=== PATIENT | female | born 1970 | race Caucasian/White ===

== ENCOUNTER 2016-10-25 05:23 | Inpatient (IN) ==
--- NOTE | 2016-10-25 05:34 | EKG Report ---
Test Performed on : 10/25/2016 05:25:54 AM Test Reason : CP Blood Pressure : / mmHG Vent. Rate : 095 BPM Atrial Rate : 095 BPM P-R Int : 110 ms QRS Dur : 128 ms QT Int : 380 ms P-R-T Axes : 055 048 028 degrees QTc Int : 477 ms Sinus rhythm. with short SC Right bundle branch block Abnormal ECG When compared with ECG of 24-AUG-2016 20:34, No significant change was found Unconfirmed Result
[2016-10-25 05:51] LABS: MANUAL DIFF NEEDED? NO
[2016-10-25 05:55] LABS: BASO% 0.3 % (0.0-0.8); EOS# 0.54 X1000 (0.0-0.7); EOS% 3.7 % (0.0-10.0); HEMATOCRIT 45.1 % (37.0-47.0); HEMOGLOBIN 15.7 g/dL (12.0-16.0); IMM GRAN# 0.08 X1000 (0.0-0.04); IMM GRAN% 0.6 % (0.0-0.5); LYMPH# 1.89 X1000 (1.2-3.4); MCH 28.9 PG (27-31); MCHC 34.8 g/dL (33-37); MCV 82.9 FL (81-99); MONO# 0.91 X1000 (0.11-0.59); MONO% 6.3 % (1.7-9.3); MPV 11.9 FL (7.4-10.4); NEUT% 76.1 % (42.2-75.2); PLT 217 X1000 (130-400); RBC 5.44 XMIL (4.2-5.4)
[2016-10-25] MEDS ORDERED: TORADOL IV ONE (06:00)
[2016-10-25] MEDS ORDERED: ZOFRAN IV ONE (06:00)
[2016-10-25] MEDS ORDERED: ROCEPHIN 1 GM/NS 50 ML IV ONE (06:01)
[2016-10-25] MEDS ORDERED: MORPHINE IV ONE (06:01)
--- NOTE | 2016-10-25 06:05 | PROVIDER DOCUMENTATION ---
HPI-Chest Pain - General Chief Complaint: Chest Pain Stated Complaint: chest wall pain Time Seen by Provider: 10/25/16 05:31 Source: patient, EMS Allergies/Adverse Reactions: Patient Allergies Allergy/AdvReac Type Severity Reaction Status Date / Time Penicillins Allergy HIVES Verified 11/26/16 22:44 Home Medications: Home Medication List Medication Instructions Recorded Confirmed Last Taken Type Paroxetine [Paxil] 1 tab PO DAILY 06/06/14 11/26/16 11/09/16 History Ciprofloxacin HCl [Cipro] 500 mg PO Q12HR #1 tablet 11/05/16 11/11/16 11/09/16 Rx Diazepam [Valium] 10 mg PO PRN PRN 11/10/16 11/26/16 Unknown History Glimepiride [Amaryl] 4 mg PO DAILY #30 tablet 11/10/16 11/26/16 Unknown Rx Metformin [Glucophage] 500 mg PO BID CC #60 tablet 11/10/16 11/26/16 Unknown Rx Azithromycin 500 mg PO DAILY #5 tablet 11/26/16 Unknown Rx Guaifenesin/Pseudoephedrne HCl 1 each PO BID #30 tab.er.12h 11/26/16 Unknown Rx [Mucinex D ER Tablet] - History of Present Illness-CP Nature of Presenting Problem: pt states that she has been sick for about 1 1/2 weeks with dry hacky painful cough then last night got chills and subjetive fevers and dev eloped severe right sided plueritic CP. She has been vomiting about once a day. She does smoke about 1 ppd Review of Systems - Adult - REVIEW OF SYSTEMS - ADULT Constitutional: reports: chills, fever, fatique Eyes: denies: discharge Ears, Nose, Mouth & Throat: reports: sinus problem. denies: ear pain, throat pain Cardiovascular: reports: chest pain. denies: edema, palpitations, syncope Respiratory: reports: cough, shortness of breath, wheezing Gastrointestinal: reports: nausea, vomiting. denies: abdominal pain, diarrhea Genitourinary: denies: dysuria, frequency, flank pain Musculoskeletal: denies: back pain, muscle aches Integumentary: denies: rash Neurological: denies: headache/migraines, numbness Psychiatric: reports: no symptoms reported Endocrine: reports: no symptoms reported Hematologic/Lymphatic: reports: no symptoms reported Allergic/Immunologic: reports: no symptoms reported All Other Systems: Reviewed and Negative Past History - Adult - PAST MEDICAL HISTORY-ADULT Review of Records: reports: Old Records Reviewed, Nursing Assessment Review, Medications Reviewed, Social history reviewed & non-contributory. Major Childhood Illnesses: reports: denies history Cardiovascular: reports: denies history Respiratory: reports: denies history Gastrointestinal: reports: denies history Obstetrical/Gynecological: reports: denies history Genitourinary: reports: denies history Musculoskeletal: reports: denies history Neurological: reports: Seizures/Epilepsy Endocrine/Immune: reports: Diabetes Other Conditions: reports: denies history - PRIOR SURGERIES/PROCEDURES Surgical/Procedure History: reports: hysterectomy, , orthopedic ( extremity), other - PRIOR HOSPITALIZATIONS Prior Hospitalizations: reports: none - IMMUNIZATION STATUS Childhood Immunizations: UTD Flu Vaccine: See Nurse Assessment - FAMILY HISTORY Family History: reviewed, not pertinent - SOCIAL HISTORY Smoking: greater than 1 pack/day Alcohol Use Frequency: occasionally Living Situation: family Physical Exam-General - PHYSICAL EXAM-ADULT Initial Vital Signs Reviewed: Yes - CONSTITUTIONAL General Appearance: appears well, alert, no apparent distress - EYES Eyes: pink conjunctivae. negative: scleral icterus - HEAD, EARS, NOSE, MOUTH & THROAT HENMT: normocephalic/atraumatic, pharynx normal - NECK Neck: non-tender, full range of motion, supple, normal inspection - RESPIRATORY Respiratory: lungs clear, normal breath sounds, no respiratory distress, no accessory muscle use. negative: chest non-tender (tender diffusely over anterior chest), no pleuratic chest pain - CARDIOVASCULAR Cardiovascular: regular rate, rhythm, no edema, no murmur - GASTROINTESTINAL (ABDOMEN) Abdominal Exam: normal bowel sounds, non tender, soft, no organomegaly, no pulsatile mass - MUSCULOSKELETAL Back Exam: normal inspection, no CVA tenderness, no vertebral tenderness Extremity: non-tender, normal gait, normal inspection, no pedal edema, no calf tenderness - SKIN Integumentary: normal color, normal turgor, warm/dry - NEUROLOGIC Neurologic: grossly normal, no motor/sensory deficits - PSYCHIATRIC Psych/Mental Status: normal mood/affect, normal thought content, normal thought process, oriented x 3 Progress - PLAN OF CARE/RESULTS Result Diagrams: 11/05/16 06:05 11/04/16 06:25 - EKG 1 Time of EKG reading by physician:: 05:25 EKG Interpretation (*Must complete 3 of following elements*): Abnormal Rate: 95 Rhythm: sinus Acworth: normal QRS: RBB AL Interval: normal ST Wave: normal Prior EKG Comparison: no prior EKG - XRAY 1 XRAY Study: Chest Impression: Abnormal (RLL infiltrate) - CHANGE OF SHIFT REPORT (ED Provider) Report Given and Care Transferred to:: Dr Hernandez Time of Transfer: 06:00 Items Pending: Labs Tentative Impression of Patient: pnuemonia Departure - Departure Time of Disposition Decision: 18:24 DIAGNOSIS: Chest pain Disposition: ADMITTED INPATIENT 09 Certified Medical Emergency: Emergent Condition: Stable - Critical Care Note This patient required my direct & personal management of CC.: Yes Attestation - Physician/ GIA Attestation The physician spent face to face time with patient:: Yes Advanced Practice Provider documentation review:: The physician spent face to face time with this patient and agrees with all MLP documentation, treatment, and medical decision making by the MLP. See provider notes for further information.
[2016-10-25 06:06] LABS: INR 0.89; PROTIME 9.3 Seconds (9.2-11.7); PTT 20.7 Seconds (22.0-36.0)
[2016-10-25 06:17] LABS: AGAP 16; ALBUMIN 3.6 g/dL (3.5-5.0); ALKALINE PHOSPHATASE 158 U/L (32-104); BUN 10 mg/dL (8-22); CALCIUM 9.3 mg/dL (8.8-10.2); CHLORIDE 91 mmol/L (98-107); CK PROFILE 31 U/L (24-173); COSMO 280; GOT 57 U/L (10-30); GPT 54 U/L (10-36); MAGNESIUM 1.8 mg/dL (1.5-2.7); POTASSIUM 4.4 mmol/L (3.5-5.1); SODIUM 130 mmol/L (136-145); TCO2 23 mmol/L (25-35); TOTAL BILIRUBIN 0.43 mg/dL (0.20-1.00)
[2016-10-25] MEDS ORDERED: NS 2,000 ML ONE (07:09)
[2016-10-25] MEDS ORDERED: NS 1,000 ML IV ONE (07:18)
--- NOTE | 2016-10-25 07:47 | Diag Imaging Result Document ---
PROCEDURE NAME: CHEST-2 VIEWS - 10/25/2016 FRONTAL AND LATERAL CHEST, TWO VIEWS: COMPARISON: 04/04/2016. FINDINGS: There is large round density in the right middle lobe with an air fluid level. The left lung is well expanded and clear. No pleural effusions. No cardiomegaly. The vessels are not distended. There is an azygous fissure. Mild scoliosis with degenerative spine changes. IMPRESSION: Interval development of a round opacity which is cavitary with an air fluid level in the right middle lobe. Findings likely postinfectious since it has developed since the prior exam. Treatment with short term follow up recommended.
[2016-10-25] MEDS ORDERED: HUMULIN R IV ONE (08:29)
[2016-10-25 09:32] LABS: HEMOGLOBIN A1C 10.6 % (4.8-6.0)
[2016-10-25 09:35] LABS: ACETONE SERUM SMALL (NEGATIVE)
--- NOTE | 2016-10-25 09:46 | HISTORY AND PHYSICAL ---
PRIMARY CARE PROVIDER: REMY Fleming. CHIEF COMPLAINT: Cough and chest wall pain. HISTORY OF PRESENT ILLNESS: Mrs. Huitron is a 46-year-old female with a history of nonepileptic seizures and type 2 diabetes, who presents with worsening shortness of breath and cough over the past 24 hours. She states she has been sick for the past 2 weeks with upper respiratory congestion, nasal congestion, and cough. She has had a child that has been sick with a cold. This morning when she got up for work she noted she was more short of breath and had worsening cough. She has been coughing up brown sputum. She has also been having chest wall pain with coughing. When she got to work she was a bit more short of breath and decided to come to the ER for evaluation. She has been having subjective fevers and chills. No exertional chest pain, no lower extremity edema, and no orthopnea. She does report posttussive emesis, but no overt nausea, vomiting, or abdominal pain. When she came to the ER she had labs and diagnostics done. A chest x-ray showed a cavitary lesion in the right lower lung and her labs showed leukocytosis, as well as elevated liver function tests. In the ER, she did have an episode of mild hypotension with a blood pressure in the high 80s but this has since been corrected with IV fluids. Currently, her vital signs are stable and she is afebrile. We are going to admit her for further treatment and evaluation. PAST MEDICAL HISTORY: 1. Type 2 diabetes. 2. Nonepileptic seizures. 3. Nicotine dependence. 4. Anxiety and depression. PAST SURGICAL HISTORY: Clubfoot repair as a child, hysterectomy, , shoulder surgery, hand surgery, and tubal ligation. SOCIAL HISTORY: Patient smokes a pack a day. She denies alcohol or drug use. She is single and works at [employer]. FAMILY HISTORY: Father at 71 with an [place]. Mother is still alive with a history of type 2 diabetes, heart disease, and hypertension. REVIEW OF SYSTEMS: A 14 point review of systems obtained and found to be negative with the exception of the HPI. ALLERGIES: Acetaminophen, hydrocodone, and penicillin. HOME MEDICATIONS: Glyburide 2.5 mg daily, Paxil 20 mg daily, Valium every 12 hours as needed for seizure. PHYSICAL EXAMINATION: VITAL SIGNS: Blood pressure is 121/76, heart rate 76, respiratory rate 20, O2 saturation 99% room air, temperature is 98.4 degrees. GENERAL: This is a chronically ill-appearing, 46-year-old female, lying in hospital bed, no acute distress. NEUROLOGIC: The patient is awake, alert, and oriented. She follows commands without focal deficits. HEENT: Head is atraumatic, normocephalic. Her pupils are equal, round, reactive to light. Oral mucosa is moist. Trachea is midline. No JVD. CHEST: Crackles over the right lung base. Otherwise clear to auscultation bilaterally. CV: Regular rate and rhythm. S1, S2 is noted. No murmurs, gallops, clicks, or rubs. GI: Soft, nondistended, nontender. Bowel sounds are positive. EXTREMITIES: Without edema, clubbing, or cyanosis. Pulses are palpable bilaterally. DIAGNOSTIC DATA: Chest x-ray shows cavitary lung lesion with air-fluid level in the right lower lung. WBC 14.51, hemoglobin 15.7, hematocrit 45.1, platelet count 217,000. INR 0.89. D-dimer 0.36. Sodium 130, potassium 4.4, chloride 91, CO2 23, anion gap 16, BUN 10, creatinine 0.7, glucose 453, calcium 9.3, magnesium 1.8. Bilirubin 0.43, AST 57, ALT 54, alkaline phosphatase 158. CK 31. Troponin negative. ProBNP 83. Albumin 3.6. ASSESSMENT AND PLAN: 1. Cavitary pneumonia: We will obtain blood cultures and sputum cultures. We will also obtain a QuantiFERON gold test. Will start the patient on meropenem to cover for anaerobic organisms. We are also going to check a CT of the chest with contrast for better evaluation. We will continue oxygen as needed, DuoNeb around the clock, and aggressive pulmonary toilet. 2. Hyperglycemia in a patient with type 2 diabetes: We are going to give the patient some IV insulin now and start her on sliding scale with high-dose insulin. It is likely the patient will need quite a bit more therapy than 2.5 mg of glyburide but we are going to check a hemoglobin A1c and make sure we educated the patient on diabetes. 3. Elevated liver function tests: Unclear as to the etiology. She denies any overt abdominal pain. She has no tenderness on exam. Will check alcohol level, acetaminophen level, hepatitis panel. We will check a CMP in the morning. 4. Mild elevated anion gap metabolic acidosis: We will check a lactic acid and serum acetone levels now and treat her underlying hyperglycemia and pneumonia. 5. Nonepileptic seizures: The patient denies any recent seizures. Will continue her Valium as needed. 6. Nicotine dependence: Patient has been highly advised to quit smoking. We will write a nicotine patch. Continue nicotine cessation education. 7. Deep vein thrombosis prophylaxis with Lovenox. Further recommendations to follow. Dictated by REMY Koch for Susan Casarez MD
[2016-10-25 09:48] LABS: ACETAMINOPHEN < 1.2 ug/mL (10-30)
[2016-10-25] MEDS: DUONEB (A & A) INH SCH ×3 (10:19→19:47)
[2016-10-25] MEDS: LOVENOX SUBQ SCH (10:32)
[2016-10-25] MEDS: NICODERM PATCH TD SCH (10:33)
[2016-10-25] MEDS: NS 1,000 ML IV SCH ×2 (10:33→21:08)
[2016-10-25 10:50] LABS: URINE CULTURE NEEDED? NO; URINE SOURCE CLEAN CATCH
[2016-10-25 10:55] LABS: BILIRUBIN URINE NEGATIVE (NEGATIVE); BLOOD URINE NEGATIVE (NEGATIVE); COLOR YELLOW; GLUCOSE URINE >1000 mg/dL (NEGATIVE); LEUKOCYTES URINE NEGATIVE (NEGATIVE); NITRITE URINE NEGATIVE (NEGATIVE); PH URINE 5.5; PROTEIN URINE NEGATIVE (NEGATIVE); SP GRAVITY URINE 1.039; TURBIDITY URINE CLEAR (CLEAR); URINE MICRO REVIEW NEEDED? YES; UROBILINOGEN URINE NORMAL (NORMAL)
[2016-10-25 10:56] LABS: UR EPITHELIAL CELLS <10 /HPF (<10); URINE BACTERIA NEGATIVE /HPF; URINE RBC <10 /HPF (<10); URINE WBC <10 /HPF (<10)
[2016-10-25] MEDS: MERREM 1 GM in NS 50 ML IV SCH ×2 (10:57→18:49)
[2016-10-25] MEDS: PAXIL PO SCH (10:57)
[2016-10-25 11:00] LABS: URINE CASTS NONE SEEN; URINE CRYSTALS NONE SEEN; URINE SMALL ROUND CELLS NONE SEEN
[2016-10-25] MEDS ORDERED: HUMALOG SUBQ SCH (11:00)
[2016-10-25 11:06] LABS: FREE T4 1.3 ng/dL (0.93-1.70)
[2016-10-25 11:08] LABS: TOTAL IRON 34 ug/dL (49-151)
[2016-10-25 11:09] LABS: IRON SATURATION 17 %; TIBC 205 ug/dL; UNBOUND IRON 171 ug/dL (112-346)
[2016-10-25 11:11] LABS: UR AMPHETAMINES QUAL NONE DETECTED (NONE DETECT); UR BARBITUATES QUAL NONE DETECTED (NONE DETECT); UR BENZODIAZEPIN QUAL NONE DETECTED (NONE DETECT); UR CANNABINOIDS QUAL NONE DETECTED (NONE DETECT); UR COCAINE QUAL NONE DETECTED (NONE DETECT); UR METHADONE QUAL NONE DETECTED (NONE DETECT); UR OPIATES QUAL PRESUMPTIVE POSITIVE (NONE DETECT); UR OXYCODONE QUAL NONE DETECTED (NONE DETECT); UR PCP QUAL NONE DETECTED (NONE DETECT)
--- NOTE | 2016-10-25 12:44 | Diag Imaging Result Document ---
PROCEDURE NAME: CT THORAX W/CONTRAST - 10/25/2016 CT THORAX WITH CONTRAST: TECHNIQUE: Performed with intravenous contrast. A dose reduction protocol was used. COMPARISON: No comparison CT thorax is available. FINDINGS: There is a 5.4 x 4.2 cm cavitary opacity at the right middle lobe. The cavity itself, which contains air and fluid, measures 2.6 x 2.4 cm. There is a 1 cm noncalcified nodular opacity at the superior right upper lobe. The remainder of the lungs show nonspecific mild interstitial marking prominence. There are tiny bilateral pleural effusions. There is no pneumothorax seen. There is a possible small (0.9 cm) lymph node at the superior right hilum. There is mild mediastinal adenopathy at the subcarinal region. There is an accessory azygos fissure noted consistent with normal variation. The visualized thyroid is mildly prominent, and there is a 0.7 cm low-density lesion in the left thyroid lobe. There is a small pericardial effusion. Included sections of upper abdomen show mildly heterogeneous enhancement of the visualized spleen. There are multiple calcified splenic granulomas noted from old granulomatous disease. IMPRESSION: 1. A 5.4 x 4.2 cm cavitary lesion at right middle lobe. Considerations include atypical infection and malignancy. 2. A 1 cm noncalcified nodule at superior right upper lobe. Possible small lymph node at the superior right hilum. Mild subcarinal mediastinal adenopathy. 3. Small pericardial effusion. Tiny bilateral pleural effusions. [facility]
[2016-10-25] MEDS ORDERED: HUMULIN R SUBQ SCH (12:45)
[2016-10-25] MEDS: DILAUDID IV PRN ×3 (13:33→21:08)
[2016-10-25] MEDS: HUMULIN R SUBQ SCH ×3 (13:37→21:10)
[2016-10-25] MEDS ORDERED: VANCOMYCIN IV PER PHARMACY MISC SCH (13:45)
[2016-10-25] MEDS ORDERED: VANCOMYCIN 1,850 MG in NS 500 ML IV ONE (15:00)
[2016-10-25] MEDS ORDERED: INSULIN PEN NEEDLES ONE (16:48)
--- NOTE | 2016-10-25 18:38 | CONSULTATION ---
DATE OF CONSULTATION: 10/25/2016 CONCLUSION: A 46-year-old female was admitted to the hospital with cavitary lesion in the right middle lobe. She has an air-fluid level in the lesion. This may be due to a lung abscess although the patient does not have a foul odor to her breath and her teeth are in good repair. Patient denied to me smoking but the lesion could also represent a malignancy. The patient has a history of penicillin allergy as a child manifested by hives. She is on meropenem now and tolerating it well. RECOMMENDATIONS: I agree with treating the patient with vancomycin and meropenem pending blood cultures. A sputum culture already has been ordered but not collected. DISCUSSION: The patient in the past week had some upper respiratory congestion. Today she had the sudden onset of severe right pleuritic chest pain. She is not coughing much and has not brought up any sputum. She has not had any fever or chills. She does not have any appetite today. Laboratory studies thus far show a CBC with a white count of 4510, hemoglobin 15.7 and platelet count 217,000. Glucose was 453. AST was 57. Alkaline phosphatase was 158. Swab for influenza was negative. Blood cultures are pending. Quantiferon is pending. PAST MEDICAL HISTORY/REVIEW OF SYSTEMS: Eyes and ears: She denies difficulty hearing or seeing. Neck: No stiffness. Respiratory: She is having pleuritic right-sided chest pain. She has been coughing and she has not brought up any sputum. Gastrointestinal: The patient does not feel like eating today. She has not been having vomiting or diarrhea. Genitourinary : No dysuria or flank pain. Neurologic: No motor or sensory loss. No seizures. Endocrine: Patient has diabetes mellitus but not thyroid disease. Neurologic: No seizures. No motor or sensory loss. Bones, joints, muscles: No joint pain or myalgias. Integument: No rash. The remainder of the patient's review of systems was completed and was negative. PHP PROGRAMMER HISTORY: She is a 3, para 3, AB 0. She delivered one of her children by C- section. She had a tubal ligation and hysterectomy. PREVIOUS HOSPITALIZATIONS AND OPERATIONS: She had a , labor and delivery, tubal ligation, hysterectomy, surgery on her feet, surgery on her hand and surgery on her shoulder. MEDICAL DISEASES: Positive for diabetes mellitus. INFECTIOUS DISEASE HISTORY: Positive for UTI. Negative for pneumonia. FAMILY HISTORY: Positive for diabetes mellitus, hypertension, myocardial infarction, and stroke. SOCIAL HISTORY: The patient [place] . [place] She denied smoking cigarettes, drinking alcoholic beverages or abusing drugs. She works at [email or web address]. Where she lives there is a dog that the patient is often exposed to. ALLERGIES: The patient states she is allergic to penicillin. As a child she had hives. She is tolerating meropenem well. MEDICATIONS: At home include glyburide, Valium and Paxil. PHYSICAL EXAMINATION: Vital Signs: Temperature is 99.6 degrees, pulse 91, respirations 18, blood pressure 91/62. The patient weighs 136 pounds. General: This is an ill- appearing middle-aged female. She seems to be having right-sided pleuritic chest pain. Head/eyes/ ears/nose/throat: She can hear my spoken words and see near objects. No drainage noted from the nose or ears. Neck: No meningismus. Thorax: No increased AP diameter. Lungs: Lungs are clear on the left side. On the right side there were a few rhonchi heard. No rales were heard. Abdomen: Soft and nontender. Neurologic: Patient is awake. She can move her extremities. There is no tremor. Her sensation was intact to touch. Her memory regarding her medical history seemed to be intact as well. Integument: No rash noted. Thank you for the consultation. [facility]TD[facility]
[2016-10-25] MEDS: TYLENOL PO PRN (21:08)
[2016-10-25] MEDS: ZOFRAN IV PRN (21:09)
[2016-10-25] MEDS: LEVEMIR SUBQ SCH (21:09)
[2016-10-26] MEDS: DILAUDID IV PRN ×5 (00:52→16:26)
[2016-10-26] MEDS: ZOFRAN IV PRN ×3 (02:24→12:14)
[2016-10-26] MEDS: HUMULIN R SUBQ SCH ×6 (02:25→20:35)
[2016-10-26] MEDS: MERREM 1 GM in NS 50 ML IV SCH ×3 (02:25→17:56)
[2016-10-26] MEDS: VALIUM PO PRN ×2 (04:09→20:19)
[2016-10-26] MEDS: NS 1,000 ML IV SCH ×2 (04:40→12:23)
[2016-10-26 06:16] LABS: MANUAL DIFF NEEDED? NO
[2016-10-26 06:19] LABS: BASO% 0.1 % (0.0-0.8); EOS# 0.01 X1000 (0.0-0.7); EOS% 0.1 % (0.0-10.0); HEMATOCRIT 38.4 % (37.0-47.0); HEMOGLOBIN 13.1 g/dL (12.0-16.0); IMM GRAN# 0.08 X1000 (0.0-0.04); IMM GRAN% 0.4 % (0.0-0.5); LYMPH% 8.8 % (20.5-51.1); MCH 28.9 PG (27-31); MCHC 34.1 g/dL (33-37); MCV 84.6 FL (81-99); MONO# 1.29 X1000 (0.11-0.59); MONO% 6.7 % (1.7-9.3); MPV 10.7 FL (7.4-10.4); NEUT% 83.9 % (42.2-75.2); PLT 224 X1000 (130-400); RBC 4.54 XMIL (4.2-5.4)
[2016-10-26] MEDS: SODIUM CHLORIDE 0.9% INJ SCH (06:31)
[2016-10-26] MEDS: PROTONIX IV SCH (06:31)
[2016-10-26 06:34] LABS: AGAP 8; ALBUMIN 2.8 g/dL (3.5-5.0); ALKALINE PHOSPHATASE 114 U/L (32-104); BUN 10 mg/dL (8-22); CALCIUM 9.2 mg/dL (8.8-10.2); CHLORIDE 101 mmol/L (98-107); COSMO 275; GOT 16 U/L (10-30); GPT 37 U/L (10-36); POTASSIUM 5.1 mmol/L (3.5-5.1); SODIUM 135 mmol/L (136-145); TCO2 26 mmol/L (25-35); TOTAL BILIRUBIN 0.31 mg/dL (0.20-1.00); TOTAL PROTEIN 6.6 g/dL (6.3-8.3)
[2016-10-26] MEDS ORDERED: PRILOSEC PO SCH (07:00)
--- NOTE | 2016-10-26 07:03 | EKG Report ---
Test Performed on : 10/26/2016 06:28:32 AM Test Reason : CP Blood Pressure : / mmHG Vent. Rate : 083 BPM Atrial Rate : 083 BPM P-R Int : 118 ms QRS Dur : 136 ms QT Int : 406 ms P-R-T Axes : 074 044 028 degrees QTc Int : 477 ms Normal sinus rhythm. Right bundle branch block Abnormal ECG When compared with ECG of 25-OCT-2016 05:25, No significant change was found Confirmed by Michael MCMULLEN, Collin Gonzalez ([id number]) on 10/26/2016 4:30:57 PM
[2016-10-26] MEDS: DUONEB (A & A) INH SCH ×3 (08:51→23:02)
[2016-10-26] MEDS: PAXIL PO SCH (09:08)
[2016-10-26] MEDS: NICODERM PATCH TD SCH (09:09)
[2016-10-26] MEDS: LEVEMIR SUBQ SCH ×2 (09:20→20:35)
[2016-10-26] MEDS: LOVENOX SUBQ SCH (09:26)
--- NOTE | 2016-10-26 10:34 | PROGRESS NOTE ---
DATE: 10/26/2016 PRESENT ILLNESS: The patient has a cavitary lesion in the right middle lobe. It has an air-fluid level in it. MEDICATIONS: The patient is on a combination of vancomycin and meropenem. PHYSICAL EXAMINATION: Vital Signs: Temperature is 97.5 degrees, pulse 83, respirations 16, blood pressure 107/60. General: This is an ill-appearing, middle-aged female. She does not appear to be having as much pain as she did yesterday, and she is more alert and not lethargic like she was yesterday. Lungs: Clear to auscultation. Cardiovascular: Heart rate is regular. Abdomen: Soft and nontender. LABS AND X-RAYS: The patient's CBC shows a white count of 19,220, hemoglobin 13.1, and platelet count of 224,000. The patient's creatinine for today is 0.5 with a GFR of greater than 60. The patient's glucose has come down from 453 to 211. Blood cultures are pending. Swab for influenza is negative. Sputum culture is not growing at this time. There is no new x-ray for today. ASSESSMENT AND PLAN: Patient has a cavitary lung lesion. My plan would be to continue treating her with a combination of vancomycin and meropenem pending other tests that have been ordered earlier for the patient including a QuantiFERON. I could not actually find a comorbidity. She does not smoke cigarettes. She does not drink alcoholic beverages. She does not abuse drugs. ASSESSMENT AND PLAN: To continue with the broad-spectrum antibiotic coverage that the patient is on already. COMORBIDITIES: The patient's comorbidities include mainly diabetes mellitus. She denies cigarette smoking.
[2016-10-26 10:43] LABS: HEPATITIS PROFILE ACUTE SEE COMMENTS (())
[2016-10-26] MEDS: VANCOMYCIN 1,500 MG in NS 250 ML IV SCH (12:12)
[2016-10-26] MEDS: TYLENOL PO PRN (20:19)
--- NOTE | 2016-10-26 20:35 | PROGRESS NOTE ---
DATE: 10/26/2016 SUBJECTIVE: The patient complains of pain in her chest when she takes a deep breath. She also complains of cough and shortness of breath. OBJECTIVE: Vital Signs: Temperature 98.2 degrees, blood pressure 112/63, heart rate 97, respirations 18, O2 saturations 90% on 2 L nasal cannula. General: This is a middle-aged female, lying in bed, in no acute distress. Head: Normocephalic, atraumatic. Heart: S1, S2 normal. Regular rate and rhythm. Lungs: Coarse breath sounds bilaterally. Abdomen: Positive bowel sounds. Soft, nontender, nondistended. Extremities: No edema. No cyanosis. No calf tenderness. Neurologic: The patient is alert and oriented x3. LABS: White blood cell count 19, hemoglobin 13, hematocrit 38, platelets 224,000, sodium 135, potassium 5.1, chloride 101, CO2 26, BUN 10, creatinine 0.5, glucose 211, calcium 9.2. ASSESSMENT AND PLAN: 1. Cavitating lung lesion. Continue with broad-spectrum antibiotics as directed by Dr. Mcmanus. We will continue with incentive spirometry, bronchodilator therapy and supplemental oxygen. 2. Uncontrolled diabetes mellitus type 2. We will continue Levemir plus sliding scale insulin. 3. Leukocytosis. Continue with current antibiotic therapy. 4. Hyponatremia. Improved. 5. Deep vein thrombosis prophylaxis. Continue on Lovenox. 6. Gastrointestinal prophylaxis. Continue on IV Protonix.
[2016-10-27] MEDS: DILAUDID IV PRN ×6 (00:36→22:26)
[2016-10-27] MEDS: HUMULIN R SUBQ SCH ×5 (01:20→17:01)
[2016-10-27] MEDS: MERREM 1 GM in NS 50 ML IV SCH ×4 (02:06→17:28)
[2016-10-27] MEDS: ZOFRAN IV PRN ×5 (02:06→22:26)
[2016-10-27] MEDS: DUONEB (A & A) INH SCH ×5 (02:42→20:55)
[2016-10-27] MEDS: VANCOMYCIN 1,500 MG in NS 250 ML IV SCH (05:07)
[2016-10-27] MEDS: NS 1,000 ML IV SCH ×3 (05:10→15:45)
[2016-10-27] MEDS: PROTONIX IV SCH (06:28)
[2016-10-27] MEDS: SODIUM CHLORIDE 0.9% INJ SCH (06:28)
[2016-10-27 06:54] LABS: BASO% 0.1 % (0.0-0.8); EOS# 0.02 X1000 (0.0-0.7); EOS% 0.1 % (0.0-10.0); HEMATOCRIT 37.6 % (37.0-47.0); HEMOGLOBIN 12.4 g/dL (12.0-16.0); IMM GRAN# 0.08 X1000 (0.0-0.04); IMM GRAN% 0.5 % (0.0-0.5); LYMPH# 1.27 X1000 (1.2-3.4); LYMPH% 7.2 % (20.5-51.1); MANUAL DIFF NEEDED? YES; MCH 28.3 PG (27-31); MCV 85.8 FL (81-99); MONO# 1.11 X1000 (0.11-0.59); MONO% 6.3 % (1.7-9.3); MPV 11.2 FL (7.4-10.4); NEUT% 85.8 % (42.2-75.2); PLT 237 X1000 (130-400); RBC 4.38 XMIL (4.2-5.4)
[2016-10-27 07:03] LABS: AGAP 12; ALBUMIN 2.6 g/dL (3.5-5.0); ALKALINE PHOSPHATASE 118 U/L (32-104); BUN 12 mg/dL (8-22); CALCIUM 9.6 mg/dL (8.8-10.2); CHLORIDE 100 mmol/L (98-107); COSMO 274; GOT 14 U/L (10-30); GPT 27 U/L (10-36); POTASSIUM 3.9 mmol/L (3.5-5.1); SODIUM 136 mmol/L (136-145); TCO2 24 mmol/L (25-35); TOTAL BILIRUBIN 0.19 mg/dL (0.20-1.00); TOTAL PROTEIN 6.2 g/dL (6.3-8.3)
[2016-10-27 07:18] LABS: BANDS 10 % (0-1); LYMPHS 8 % (21-51); MONO 4 % (1-9)
[2016-10-27] MEDS: LOVENOX SUBQ SCH ×2 (08:35→10:49)
[2016-10-27] MEDS: PAXIL PO SCH (08:35)
[2016-10-27] MEDS: LEVEMIR SUBQ SCH (08:36)
[2016-10-27] MEDS: NICODERM PATCH TD SCH (08:37)
--- NOTE | 2016-10-27 14:11 | PROGRESS NOTE ---
DATE: 10/27/2016 SUBJECTIVE: The patient complains of nausea whenever she tries to eat or drink anything. She states that her shortness of breath is getting better. OBJECTIVE: Vital Signs: Temperature 98.4 degrees, blood pressure 121/72, heart rate 16. O2 saturations 93% on nasal cannula. General: This is a middle-aged female, lying in bed, in no acute distress Head normocephalic, atraumatic. Heart: S1, S2. Normal regular rate and rhythm. Lungs clear to auscultation bilaterally. No crackles. No rales. Abdomen: Positive bowel sounds. Soft, nontender, nondistended. Extremities: No edema. No cyanosis. No calf tenderness. Neurologic: The patient is alert and oriented x3. LABORATORY: White blood cell count 17, hemoglobin 12, hematocrit 37, platelets 237,000. Sodium 136, potassium 3.9, chloride 100, CO2 of 24. BUN 12, creatinine 0.4, glucose 134. Magnesium 1.8, calcium 9.6. ASSESSMENT AND PLAN: 1. Caveating lung lesion. So far, the blood cultures are negative and the sputum culture shows no growth. Continue on the current IV antibiotic regimen. 2. Nausea with vomiting. The patient does have poorly controlled diabetes mellitus. This may represent diabetic gastroparesis. We will schedule the patient for gastric emptying study on Saturday. We will continue on antiemetics for now. 3. Uncontrolled insulin-dependent diabetes mellitus. Continue on Levemir twice a day plus sliding scale insulin. 4. Depression. Continue on Paxil. 5. Tobacco dependence. Continue on the NicoDerm patch. 6. Leukocytosis. This appears to be improving slowly. Continue on IV antibiotic therapy. 7. Gastroesophageal reflux disease. Continue on IV Protonix. 8. Deep vein thrombosis prophylaxis. Continue on Lovenox.
[2016-10-27] MEDS ORDERED: INSULIN PEN NEEDLES ONE (15:47)
[2016-10-28] MEDS: HUMULIN R SUBQ SCH ×7 (00:04→20:30)
[2016-10-28] MEDS: LEVEMIR SUBQ SCH ×3 (00:04→20:25)
[2016-10-28] MEDS: VANCOMYCIN 1,500 MG in NS 250 ML IV SCH ×2 (00:31→12:33)
[2016-10-28] MEDS: VALIUM PO PRN ×2 (01:18→20:25)
[2016-10-28] MEDS: TYLENOL PO PRN ×2 (01:18→20:25)
[2016-10-28] MEDS: MERREM 1 GM in NS 50 ML IV SCH ×4 (02:17→17:51)
[2016-10-28] MEDS: DUONEB (A & A) INH SCH ×4 (02:54→19:40)
[2016-10-28] MEDS: DUONEB (A & A) INH PRN (04:30)
[2016-10-28 05:46] LABS: MANUAL DIFF NEEDED? NO
[2016-10-28 05:52] LABS: BASO% 0.1 % (0.0-0.8); EOS# 0.03 X1000 (0.0-0.7); EOS% 0.2 % (0.0-10.0); HEMATOCRIT 36.6 % (37.0-47.0); HEMOGLOBIN 12.2 g/dL (12.0-16.0); IMM GRAN# 0.07 X1000 (0.0-0.04); IMM GRAN% 0.5 % (0.0-0.5); LYMPH# 1.48 X1000 (1.2-3.4); LYMPH% 9.9 % (20.5-51.1); MCH 28.9 PG (27-31); MCHC 33.3 g/dL (33-37); MCV 86.7 FL (81-99); MONO# 1.02 X1000 (0.11-0.59); MONO% 6.8 % (1.7-9.3); MPV 10.7 FL (7.4-10.4); NEUT% 82.5 % (42.2-75.2); PLT 262 X1000 (130-400); RBC 4.22 XMIL (4.2-5.4)
[2016-10-28] MEDS: PROTONIX IV SCH ×3 (06:18→19:51)
[2016-10-28] MEDS: NS 1,000 ML IV SCH ×3 (06:18→19:51)
[2016-10-28] MEDS: SODIUM CHLORIDE 0.9% INJ SCH ×2 (06:18→16:45)
[2016-10-28 06:50] LABS: AGAP 11; BUN 12 mg/dL (8-22); CALCIUM 8.8 mg/dL (8.8-10.2); CHLORIDE 103 mmol/L (98-107); COSMO 281; POTASSIUM 4.1 mmol/L (3.5-5.1); SODIUM 140 mmol/L (136-145); TCO2 26 mmol/L (25-35)
[2016-10-28] MEDS: ZOFRAN IV PRN ×4 (08:46→23:32)
[2016-10-28] MEDS: DILAUDID IV PRN ×3 (08:46→23:32)
[2016-10-28] MEDS: NICODERM PATCH TD SCH (08:47)
[2016-10-28] MEDS: PAXIL PO SCH (08:48)
[2016-10-28] MEDS: LOVENOX SUBQ SCH ×2 (08:51→12:29)
[2016-10-28] MEDS ORDERED: SODIUM CHLORIDE 0.9% INJ SCH (13:00)
--- NOTE | 2016-10-28 15:44 | PROGRESS NOTE ---
DATE: 10/28/2016 SUBJECTIVE: The patient complains of in inability to keep solids or liquids down. She states that every time she tries to the eat she ends up vomiting. OBJECTIVE: Vital Signs: Temperature 98.2 degrees, blood pressure 108/66, heart rate 95, respirations 18, O2 saturations 95% on 4 L nasal cannula. General: This is a middle-aged female lying in bed in no acute distress. Head: Normocephalic. Atraumatic. Heart: S1, S2. Normal. Regular rate and rhythm. Lungs: Clear to auscultation bilaterally. No wheezes, no rales. No rhonchi. Abdomen: Positive bowel sounds. Soft, nontender, nondistended. Extremities: No edema. No cyanosis. No calf tenderness. Neurologic: The patient is alert and oriented x3. No focal neurologic deficits noted. LABS: White blood cell count 14, hemoglobin 12, hematocrit 36, platelets 262,000. Sodium 140, potassium 4.1, chloride 103, CO2 26, BUN 12, creatinine 0.5, glucose 130, calcium 8.8, magnesium 1.7. ASSESSMENT AND PLAN: 1. Cavitary lung lesion with pneumonia. Continue on IV antibiotic therapy plus bronchodilator therapy. 2. Nausea with vomiting. The patient is a poorly controlled diabetic. Gastric emptying study has been ordered to be done tomorrow. Will also consult GI for further recommendations. 3. Insulin-dependent diabetes mellitus. Will adjust the patient's Levemir dosage. 4. Situational depression. Continue on Paxil. 5. Tobacco dependence. Continue on the NicoDerm patch. 6. Leukocytosis. Improved. Continue on IV antibiotic therapy. 7. Deep vein thrombosis prophylaxis. Continue on Lovenox.
--- NOTE | 2016-10-28 23:21 | CONSULTATION ---
DATE OF CONSULTATION: 10/28/2016 REFERRING PHYSICIAN: Dr. Susan Casarez M.D. PRIMARY CARE PHYSICIAN: REMY Fleming. REASON FOR CONSULTATION: 1. Nausea with vomiting. 2. Elevated liver function tests. HISTORY OF PRESENT ILLNESS: The patient is a 46-year-old white female, who has type 2 diabetes and nonepileptic seizures, who was admitted with shortness of breath and a cough , on 10/25/2016. She was found to have a right pneumonia with a cavitary lesion suspicious for infection versus malignancy. She is currently receiving IV antibiotics and fluids. Her labs in the emergency room were remarkable for hyperglycemia, and elevated liver function tests. Throughout this hospital course, her liver function tests are improving. Also on CT scan, she was noted to have fatty liver. Overall, the patient states that her nausea and vomiting occurs after she coughs up copious amounts of phlegm. She denies vomiting in between meals. However, she does have a significant postprandial nausea, which precedes her recent diagnosis of pneumonia. She describes chronic right upper quadrant pain and constipation. She has a history of gastroesophageal reflux disease. We are asked to participate in her care. PAST MEDICAL HISTORY: 1. Diabetes 2. 2. Nonepileptic seizures. 3. Nicotine dependence. 4. Anxiety and depression. 5. GERD. PAST SURGICAL HISTORY: 1. Clubfoot repair as a child. 2. Hysterectomy. 3. . 4. Shoulder surgery. 5. Hand surgery. 6. Tubal ligation. SOCIAL HISTORY: Remarkable in that the patient smokes 1 pack of cigarettes per day. She denies alcohol or recreational drug use. She is single and works at [email or web address]. FAMILY HISTORY: Positive for coronary artery disease, hypertension, diabetes. There is no history of malignancy. REVIEW OF SYSTEMS: Remarkable for dyspnea, productive cough, right upper quadrant pain, and nausea, that is worse after meals, and posttussive vomiting. PHYSICAL EXAMINATION: General: She is ill-appearing, but in no acute distress. vital signs: Her blood pressure is 108/66, pulse of 95, respirations 18, temperature of 98.2. HEENT: Negative for jaundice. Her oropharyngeal mucosal membranes are dry. Pulmonary: Inspiratory and expiratory wheezes with scattered rhonchi, and coarse breath sounds with E:A changes in the right lung, consistent with her diagnosis of a cavitary lesion, and right pneumonia. Cardiovascular: Reveals regular rate and rhythm with no murmurs, gallops, or rubs. Abdominal: Reveals normoactive bowel sounds. The abdomen is soft with mild right upper quadrant tenderness, that is inconsistent when the patient is distracted. It is nondistended, although she has mild central adiposity. Extremities: Bilaterally are negative for cyanosis, clubbing, or edema. Neurologic: The patient is alert and oriented x3. OBJECTIVE DATA: Reveals a hemoglobin of 12.2, with hematocrit of 36.6, and a white count of 14.96. She has 262,000 platelets. Sodium is 140, potassium 4.1, chloride 103, CO2 of 26, BUN 12, creatinine 0.5, with a glucose of 130. Her calcium is 8.8, and magnesium 1.7. IMPRESSION: 1. Right upper lobe cavitary pneumonia. 2. Nausea with vomiting. 3. Right upper quadrant pain. 4. History of GERD. 5. Constipation, that is worse since she has been admitted. 6. Elevated liver function tests. RECOMMENDATION: 1. The patient's liver function tests have improved considerably throughout the hospital course. I suspect it may be related to her pneumonia with a possible viral syndrome. Given that her liver function tests are improving spontaneously, I recommend monitoring. 2. To evaluate the nausea with vomiting, it is reasonable to check a right upper quadrant ultrasound and HIDA scan. I will order these for tomorrow. 3. Because of her diabetes, I will also order a gastric emptying study to be performed in a couple of days, allowing time for her nausea and vomiting to improve, while she is receiving treatment for her pneumonia. 4. Continue IV Protonix 40 mg q.12 hours. 5. Consider a modified barium swallow before discharge to assess for aspiration. 6. Additional recommendations to follow based on her clinical course and the results of her evaluation. [facility]
[2016-10-29] MEDS: NS 1,000 ML IV SCH ×3 (00:39→23:20)
[2016-10-29] MEDS: VANCOMYCIN 1,500 MG in NS 250 ML IV SCH ×3 (00:39→23:27)
[2016-10-29] MEDS: D50W SYRINGE ONE ×2 (00:46→05:51)
[2016-10-29] MEDS: HUMULIN R SUBQ SCH ×6 (00:55→23:27)
[2016-10-29] MEDS: MERREM 1 GM in NS 50 ML IV SCH ×3 (02:38→19:45)
[2016-10-29] MEDS: DUONEB (A & A) INH SCH ×4 (03:12→20:01)
[2016-10-29] MEDS: ZOFRAN IV PRN (05:50)
[2016-10-29] MEDS: DILAUDID IV PRN ×4 (05:50→19:45)
[2016-10-29] MEDS: SODIUM CHLORIDE 0.9% INJ SCH ×2 (05:51→19:52)
[2016-10-29] MEDS: PROTONIX IV SCH ×3 (05:51→19:45)
[2016-10-29 06:33] LABS: MANUAL DIFF NEEDED? NO
[2016-10-29 06:40] LABS: BASO% 0.2 % (0.0-0.8); EOS# 0.08 X1000 (0.0-0.7); EOS% 0.8 % (0.0-10.0); HEMATOCRIT 36.7 % (37.0-47.0); HEMOGLOBIN 11.9 g/dL (12.0-16.0); IMM GRAN# 0.07 X1000 (0.0-0.04); IMM GRAN% 0.7 % (0.0-0.5); LYMPH# 1.42 X1000 (1.2-3.4); LYMPH% 13.7 % (20.5-51.1); MCH 28.6 PG (27-31); MCHC 32.4 g/dL (33-37); MCV 88.2 FL (81-99); MONO# 0.91 X1000 (0.11-0.59); MONO% 8.8 % (1.7-9.3); MPV 10.3 FL (7.4-10.4); NEUT% 75.8 % (42.2-75.2); PLT 291 X1000 (130-400); RBC 4.16 XMIL (4.2-5.4)
[2016-10-29 07:06] LABS: AGAP 9; BUN 10 mg/dL (8-22); CALCIUM 8.7 mg/dL (8.8-10.2); CHLORIDE 103 mmol/L (98-107); COSMO 286; SODIUM 142 mmol/L (136-145); TCO2 30 mmol/L (25-35)
[2016-10-29] MEDS: LEVEMIR SUBQ SCH ×2 (10:37→23:26)
[2016-10-29] MEDS: LOVENOX SUBQ SCH (10:44)
[2016-10-29] MEDS: NICODERM PATCH TD SCH (10:45)
--- NOTE | 2016-10-29 10:49 | Diag Imaging Result Document ---
PROCEDURE NAME: US GB < RUQ (LIMITED) - 10/29/2016 RIGHT UPPER QUADRANT ABDOMINAL ULTRASOUND: COMPARISON: None available. FINDINGS: There is questionable non shadowing echogenic sludge layering in the gallbladder lumen versus reverberation artifact. No shadowing stones are identified. There is no evidence of gallbladder wall thickening or pericholecystic fluid. Sonographic Moura's sign was reported to be negative. The common bile duct is normal in diameter. The liver is perhaps mildly prominent measuring up to 18.8 cm in length. Portal venous flow is hepatopetal. No discrete hepatic mass is identified. The visualized pancreas, aorta, IVC, and right kidney are unremarkable. IMPRESSION: 1. Questionable small amount of nonshadowing sludge layering in the gallbladder lumen versus reverberation artifact. No stones are identified and there is no gallbladder wall thickening or surrounding fluid to indicate cholecystitis by ultrasound. Please correlate clinically. 2. Mildly prominent liver. 3. Not mentioned above, there is a trace right pleural effusion noted incidentally.
--- NOTE | 2016-10-29 11:17 | Diag Imaging Result Document ---
PROCEDURE NAME: GASTRIC EMPTYING - 10/29/2016 NUCLEAR MEDICINE GASTRIC EMPTYING STUDY: COMPARISON: None available. FINDINGS: 593 mCi of technetium-99 sulfur colloid was administered orally with oatmeal. There was normal-appearing activity in the gastric lumen initially. The time to 1/2 emptying was 50.3 minutes. At 120 minutes, there was near 100% emptying. IMPRESSION: Normal gastric emptying study.
[2016-10-29] MEDS: PAXIL PO SCH (12:09)
--- NOTE | 2016-10-29 14:55 | PROGRESS NOTE ---
DATE: 10/29/2016 PRESENT ILLNESS: The patient has a right middle lobe cavitary lesion with an air-fluid level in it. MEDICATIONS: The patient is receiving vancomycin, meropenem. PHYSICAL EXAMINATION: Vital Signs: Temperature is 98.4 degrees, pulse is 92, respirations 18, blood pressure 124/68. General: This is somewhat of an ill-appearing middle-aged female who is in no acute distress. Lungs: There were few rhonchi heard on the right side. The left side was clear. Cardiovascular: Heart rate is regular. Abdomen: Soft and nontender. Neurologic: Patient is alert. She can move her extremities. LAB AND X-RAY: The ultrasound showed sludge in the gallbladder. Gastric emptying study was normal. The patient's CBC today showed a white count of 10,360, hemoglobin 11.9, and platelet count 291,000. Creatinine is 0.5. GFR is greater than 60. The patient's sputum grew normal dontae. ASSESSMENT AND PLAN: Patient has a cavitary lung lesion. I plan to continue her current antibiotics. I have ordered a chest x-ray for tomorrow. The patient's QuantiFERON test is still pending. COMORBIDITIES: The main comorbidity is the fact that the patient is diabetic. She denied smoking cigarettes.
[2016-10-29] MEDS: VALIUM PO PRN (17:30)
[2016-10-29] MEDS: TYLENOL PO PRN (17:30)
--- NOTE | 2016-10-29 18:10 | PROGRESS NOTE ---
DATE: 10/29/2016 SUBJECTIVE: The patient states that she is feeling much better today. Her gastric emptying study was normal. It appears that the nausea with vomiting is related to the pneumonia. Therefore, I recommend continued supportive care. Her labs are reviewed and they are stable. She remains afebrile with a stable blood pressure.
--- NOTE | 2016-10-29 19:30 | PROGRESS NOTE ---
DATE: 10/29/2016 SUBJECTIVE: Patient reports still feeling nauseated. Sometimes she gets short of breath when she tries to walk some. Denies any fever or chills. OBJECTIVE: Vital Signs: Temperature 98.5 degrees, heart rate 87, respiratory rate 20, blood pressure 107/69, O2 saturation 96% on 4 L nasal cannula. General: This is a 46 -year-old female lying in bed, in no acute distress. HEENT: Head is normocephalic and atraumatic. Anicteric sclerae and pale conjunctivae. Mucous membranes moist. Neck: Supple. No JVD noted. No carotid bruit. No lymphadenopathy. No thyromegaly. Cardiovascular: S1, S2 heard. No murmurs, gallops or rubs. Regular rate and rhythm. Respiratory: Clear bilaterally to auscultation with some wheezing in both bases. Patient is not using any accessory muscles or having work of breathing. Abdomen: Soft, nontender to palpation. Bowel sounds present. No organomegaly. Extremities: No clubbing, cyanosis, or edema. Peripheral pulses present in both legs. Neurological: Patient alert oriented x3. Able to move 4 extremities. Cranial nerves 2-12 grossly normal. LABORATORY DATA: White cell count 10.36, hemoglobin 11.9, hematocrit 36.7, platelets 291,000. BMP unremarkable. ASSESSMENT AND PLAN: 1. Cavitary lung lesion with pneumonia. Dr. Mcmanus is following this patient. Patient is on meropenem and vancomycin. We will continue with same management. Also, patient is getting albuterol and Atrovent 4 times per day. 2. Nausea, vomiting. We have consulted Gastroenterology for this condition and there was a suspicion for diabetic gastroparesis, but gastric emptying studies returned normal. Also, for elevated liver function tests, an abdominal ultrasound HIDA scan was ordered. The abdominal ultrasound basically showed questionable small amount of sludge in gallbladder lumen. Right pleural effusion noted. I think at this point, if she is not nauseated and the liver function tests now are normal, I think she can be discharged from Gastroenterology standpoint. 3. Situational depression. Patient is on Paxil. 4. Tobacco dependence. Patient is on NicoDerm patch. 5. Leukocytosis secondary to pneumonia. We will continue with the same management. [facility]
[2016-10-30] MEDS: DILAUDID IV PRN ×5 (02:12→22:34)
[2016-10-30] MEDS: DUONEB (A & A) INH SCH ×4 (02:17→21:23)
[2016-10-30] MEDS: VALIUM PO PRN ×2 (02:55→15:58)
[2016-10-30] MEDS: HUMULIN R SUBQ SCH ×5 (03:19→17:17)
[2016-10-30] MEDS: MERREM 1 GM in NS 50 ML IV SCH ×3 (04:50→22:34)
[2016-10-30 07:22] LABS: AGAP 10; BUN 6 mg/dL (8-22); CALCIUM 8.6 mg/dL (8.8-10.2); CHLORIDE 101 mmol/L (98-107); COSMO 282; POTASSIUM 3.6 mmol/L (3.5-5.1); SODIUM 139 mmol/L (136-145); TCO2 28 mmol/L (25-35)
[2016-10-30] MEDS: PROTONIX IV SCH ×2 (07:50→22:34)
[2016-10-30] MEDS: ZOFRAN IV PRN ×3 (08:48→22:34)
[2016-10-30] MEDS: LEVEMIR SUBQ SCH (08:48)
[2016-10-30] MEDS: LOVENOX SUBQ SCH ×2 (08:49→10:51)
[2016-10-30] MEDS: NICODERM PATCH TD SCH (08:49)
[2016-10-30] MEDS: PAXIL PO SCH (08:49)
--- NOTE | 2016-10-30 09:29 | PROGRESS NOTE ---
DATE: 10/30/2016 PRESENT ILLNESS: The patient has a right middle lobe cavitary lesion with an air-fluid level in it. MEDICATIONS: The patient continues to receive vancomycin and meropenem. This is the 8th day of meropenem and the 8th day of vancomycin treatment. PHYSICAL EXAMINATION: Vital Signs: Temperature is 98.1 degrees, pulse 91, respirations 16, blood pressure 119/72. General: This is a somewhat ill-appearing, middle-aged female. She is complaining of generalized pain at this time. Lungs: Clear to auscultation. Cardiovascular: Heart rate is regular. Abdomen: Soft and nontender. LAB AND X-RAY: We do not have a new radiographic study for today. We do not have a new CBC but the creatinine is 0.4 and the GFR is greater than 60. ASSESSMENT AND PLAN: The patient has a right middle lobe cavitary pneumonia with an air-fluid level in it. The plan is to continue with the patient's antibiotics. She has a followup appointment with me. The patient's comorbidities include diabetes and history of cigarette smoking. [facility]
--- NOTE | 2016-10-30 10:21 | Diag Imaging Result Document ---
PROCEDURE NAME: CHEST-2 VIEWS - 10/30/2016 TWO VIEWS OF THE CHEST: FINDINGS: There is consolidation throughout much of the right lower lobe with apparent cavity. This has worsened considerably since 10/25/2016 and is likely related to a pneumonia with abscess in the right middle lobe. There is also consolidation in the right lower lobe which was not previously present. There are some air bronchograms in both lower lobes. There may be pleural fluid bilaterally. IMPRESSION: Bilateral lower lobe pneumonia with right middle lobe abscess.
[2016-10-30] MEDS: NS 1,000 ML IV SCH ×2 (11:48→22:35)
--- NOTE | 2016-10-30 13:35 | PROGRESS NOTE ---
DATE: 10/30/2016 SUBJECTIVE: Patient is feeling fine. Reports less shortness of breath. Able to walk to the bathroom. Denies any fever or chills. Still having some cough with greenish sputum. OBJECTIVE: Vital Signs: Temperature 98.6 degrees, heart rate 100, respiratory rate 18, blood pressure 119/66, O2 saturation 97% on 3 L nasal cannula. General Examination: This is a 46-year- old female lying in bed, in no acute distress. HEENT: Head is normocephalic, atraumatic. Anicteric sclerae and pale conjunctivae. Mucous membranes moist. Neck: Supple. No JVD noted. No carotid bruits. No lymphadenopathy. No thyromegaly. Cardiovascular: S1, S2 heard. No murmurs, gallops, or rubs. Regular rate and rhythm. Respiratory: Clear bilaterally to auscultation. No work of breathing or using accessory muscles. Abdomen: Soft. Nontender to palpation. Bowel sounds present. No organomegaly. Extremities: No clubbing, cyanosis, or edema. Peripheral pulses present in both legs. Neurological: Patient is alert and oriented x3. Able to move 4 extremities. Cranial nerves 2 through 12 grossly normal. LABORATORY DATA: Reviewed. ASSESSMENT AND PLAN: 1. Cavitary lung lesion with pneumonia. Dr. Mcmanus is following this patient. Patient has received so far until today vancomycin and meropenem 8 doses. At this time, Dr. Mcmanus plans to see her in the office in 3 weeks. I do not think this patient will need antibiotics anymore. 2. Nausea and vomiting. That condition has resolved. 3. Situational depression. Patient is on Paxil. 4. Tobacco dependence. Patient is on NicoDerm patch. 5. Leukocytosis secondary to pneumonia. The white cell count is back to normal. We will continue with the same management.
[2016-10-30] MEDS: VANCOMYCIN 1,500 MG in NS 250 ML IV SCH (14:35)
[2016-10-31] MEDS: HUMULIN R SUBQ SCH ×6 (01:11→22:55)
[2016-10-31] MEDS: LEVEMIR SUBQ SCH ×3 (01:16→21:58)
[2016-10-31] MEDS: VANCOMYCIN 1,500 MG in NS 250 ML IV SCH ×3 (01:40→14:18)
[2016-10-31] MEDS: VALIUM PO PRN (03:55)
[2016-10-31] MEDS: DUONEB (A & A) INH SCH ×4 (06:41→19:18)
[2016-10-31] MEDS: MERREM 1 GM in NS 50 ML IV SCH ×3 (06:56→21:58)
--- NOTE | 2016-10-31 08:38 | PROGRESS NOTE ---
DATE: 10/31/2016 PRESENT ILLNESS: The patient has worsening right middle lobe cavitary disease. There is extension of the pneumonia in the lower lobe. The cavity also is enlarging. MEDICATIONS: The is day 6 of the patient's antibiotics consisting of vancomycin and meropenem. PHYSICAL EXAMINATION: Vital Signs: Temperature is 98.1 degrees, pulse 78, respirations 17, blood pressure 114/68. General: This is an ill-appearing, middle-aged female. She this morning does not seem to be having as much pain as she complained of yesterday. Lungs: Clear to auscultation. Cardiovascular: Regular heart rate. Abdomen: Soft and nontender. LAB AND X-RAY: Chest x-rays shows worsening of the patient's pneumonia. Her CBC shows a white count of 10,360, hemoglobin 11.9, and platelet count 209,000. Creatinine 0.4. GFR is greater than 60. Vancomycin level is 15.5. QuantiFERON TB test is negative. IgG and IgA levels are normal. Hepatitis panel is nonreactive. ASSESSMENT AND PLAN: The patient has a cavitary pneumonia. I plan to continue the current antibiotics. I have ordered an antibody to human immunodeficiency virus. I have also put in a consult for Dr. Durand to see if he feels that there should be a change in antibiotics or some procedure such as bronchoscopy should be performed. COMORBIDITIES: The patient's comorbidities include diabetes and cigarette smoking.
[2016-10-31] MEDS: PROTONIX IV SCH ×2 (09:56→21:57)
[2016-10-31] MEDS: SODIUM CHLORIDE 0.9% INJ SCH ×2 (09:56→21:58)
[2016-10-31] MEDS: NICODERM PATCH TD SCH (10:12)
[2016-10-31] MEDS: LOVENOX SUBQ SCH (10:12)
[2016-10-31] MEDS: PAXIL PO SCH (10:13)
[2016-10-31] MEDS: NS 1,000 ML IV SCH (14:18)
[2016-10-31] MEDS: DILAUDID IV PRN ×2 (15:43→22:45)
[2016-10-31] MEDS: ZOFRAN IV PRN ×2 (15:43→21:57)
--- NOTE | 2016-10-31 16:45 | PROGRESS NOTE ---
DATE: 10/31/2016 SUBJECTIVE: Patient reports feeling fine. Reports feeling less short of breath. Feels sometimes cough with greenish sputum. OBJECTIVE: Vital signs: Temperature 98.4. Heart rate 77. Respiratory rate 12. Blood pressure 125/70. O2 saturation 96% on 4 L nasal cannula. General: This is a 46-year-old female lying in bed in no acute distress. HEENT: Head is normocephalic, atraumatic. Anicteric sclerae. [place] conjunctivae. Mucous membranes moist. Neck: Supple. No JVD. No carotid bruits. No lymphadenopathy. No thyromegaly. Cardiologic: S1, S2 heard. No murmurs, gallops or rubs. Regular rate and rhythm. Respiratory: Clear bilaterally to auscultation. Some coarse breath sounds at both bases. The patient is not using any accessory muscles. No increased work of breathing. Abdomen: Soft. Nontender to palpation. Bowel sounds present. No organomegaly. Extremities: No clubbing, cyanosis or edema. Full pulses presents in both legs. Neurologic: Patient alert and oriented x3. Able to move her extremities. Cranial nerves II through XII grossly normal. LABORATORY DATA: Reviewed. ASSESSMENT AND PLAN: 1. Cavitary lung lesion with pneumonia. Dr. Mcmanus is following this patient. Currently this patient is on vancomycin and meropenem. Today is day #6 of both medications. Will continue with the same management. Dr. Mcmanus thinks that this patient will benefit from pulmonary consultation regarding the cavitary lesion that might need bronchoscopy. Will see what Dr. Durand from Pulmonary has to say. Help appreciated. 2. Nausea and vomiting. That condition has completely resolved. 3. Situational depression. Patient is on Paxil. 4. Tobacco dependence. Patient is on NicoDerm patch. I already advised her to stop smoking.
--- NOTE | 2016-10-31 17:00 | Diag Imaging Result Document ---
PROCEDURE NAME: HIDA SCAN W/ EJECTION FRACTION - 10/31/2016 NUCLEAR MEDICINE HIDA SCAN: COMPARISON: None available. FINDINGS: 5.5 millicuries of technetium-99 Choletec was administered intravenously, and there was normal immediate hepatocellular uptake after administration. Activity is seen in the gallbladder beginning at about 7 minutes post administration. Activity is seen in small bowel beginning at about 8 minutes post administration. 8 ounces of liquid fatty meal was then administered orally. The calculated gallbladder ejection fraction is 17%. IMPRESSION: Depressed gallbladder ejection fraction suggesting possible hypokinesis.
[2016-10-31] MEDS ORDERED: LASIX IV ONE (17:33)
--- NOTE | 2016-10-31 22:04 | CONSULTATION ---
DATE OF CONSULTATION: 10/31/2016 REQUESTING PHYSICIAN: Dr. Quinn Mcmanus. REASON FOR CONSULTATION: Worsening cavitary lung disease. HISTORY OF PRESENT ILLNESS: Ms. Huitron is a 46-year-old white female with a history of diabetes mellitus, ongoing tobacco use, seizure disorder, chronic pain syndrome, anxiety/depressive disorder who was admitted to the hospital 10/25/2016 with right-sided chest pain, cough and nausea. CT scan of the thorax revealed cavitary pneumonia in the right lung. Early in the admission, she had nausea and vomiting along with increased coughing. Chest x-ray 5 days after admission revealed a new pneumonia in the left lung base. During this hospitalization. She has undergone a gastric emptying study. Stomach was empty by 120 minutes consistent with a normal gastric emptying study. PAST MEDICAL HISTORY/PROBLEM LIST: 1. Diabetes mellitus with poor control. Hemoglobin A1c during this admission was greater than 10. 2. Chronic pain syndrome. 3. Seizure disorder. 4. Anxiety/depressive disorder. 5. Status post hysterectomy. 6. Status post shoulder surgery. 7. Next status post hand surgery for carpal tunnel disease. 8. Status post tubal ligation. SOCIAL HISTORY: Ongoing tobacco use. No alcohol use. FAMILY HISTORY: Positive for heart disease, hypertension, and diabetes mellitus. REVIEW OF SYSTEMS: Notable for intermittent nausea, cough with sputum production. She reports it was yellow to brown earlier, but is now becoming more clear. PHYSICAL EXAMINATION: General: Reveals a well-developed, well-nourished white female resting comfortably and in no distress. Vital Signs: Blood pressure 139/79, heart rate 87 and irregular, respiration rate 16, oxygen saturation 98% on 4 L per nasal cannula. HEENT: Pupils are pinpoint, but reactive. Oropharynx is clear. Neck: Supple. Chest: Reveals diminished breath sounds in both lung bases. Audible rhonchi present with deep breath and cough. Cardiac: Distant heart sounds. Normal S1, normal S2. Abdomen: Obese and soft and without hepatosplenomegaly. Extremities: Without edema. LABORATORIES: Initial cultures have been negative. White blood count 139. Potassium 3.6, chloride 101, bicarbonate 28, BUN 6, creatinine 0.4. Sugars on admission were 437, but have improved. IMPRESSION: A 46-year-old with nausea, vomiting, chronic pain medications and poorly controlled diabetes mellitus who presented with a cavitary pneumonia. This most likely represented a lung abscess likely related to an aspiration event. The patient has had additional nausea and vomiting during this hospitalization and now has bilateral pneumonia. RECOMMENDATIONS: 1. Continue current antibiotics. 2. Encourage bronchial hygiene. 3. We will attempt to induce a sputum for culture and sensitivity. 4. Followup computed tomography scan tomorrow morning. 5. If nausea continues to be an issue, would consider given the patient a trial of total parenteral nutrition/lipids until she has radiographic improvement. 6. Consider bronchoscopy, but most likely it will be a low yield procedure.
[2016-11-01] MEDS: VANCOMYCIN 1,500 MG in NS 250 ML IV SCH ×3 (00:12→23:49)
[2016-11-01] MEDS: DILAUDID IV PRN ×4 (02:58→20:03)
[2016-11-01] MEDS: ZOFRAN IV PRN ×2 (02:58→12:20)
[2016-11-01] MEDS: DUONEB (A & A) INH SCH ×4 (03:42→21:30)
[2016-11-01] MEDS: MERREM 1 GM in NS 50 ML IV SCH ×3 (05:54→22:49)
[2016-11-01] MEDS: HUMULIN R SUBQ SCH ×4 (06:08→20:17)
[2016-11-01 06:20] LABS: MANUAL DIFF NEEDED? NO
[2016-11-01 06:29] LABS: BASO% 0.3 % (0.0-0.8); EOS% 1.1 % (0.0-10.0); HEMATOCRIT 35.9 % (37.0-47.0); HEMOGLOBIN 11.5 g/dL (12.0-16.0); IMM GRAN# 0.08 X1000 (0.0-0.04); IMM GRAN% 0.9 % (0.0-0.5); LYMPH% 26.2 % (20.5-51.1); MCH 28.4 PG (27-31); MCV 88.6 FL (81-99); MONO# 0.89 X1000 (0.11-0.59); MONO% 10.1 % (1.7-9.3); MPV 9.3 FL (7.4-10.4); NEUT% 61.4 % (42.2-75.2); PLT 413 X1000 (130-400); RBC 4.05 XMIL (4.2-5.4)
[2016-11-01 06:58] LABS: AGAP 8; ALKALINE PHOSPHATASE 118 U/L (32-104); BUN 9 mg/dL (8-22); CALCIUM 8.7 mg/dL (8.8-10.2); CHLORIDE 100 mmol/L (98-107); COSMO 282; GOT 28 U/L (10-30); GPT 20 U/L (10-36); MAGNESIUM 1.7 mg/dL (1.5-2.7); POTASSIUM 3.2 mmol/L (3.5-5.1); SODIUM 143 mmol/L (136-145); TCO2 35 mmol/L (25-35); TOTAL PROTEIN 5.8 g/dL (6.3-8.3)
--- NOTE | 2016-11-01 07:54 | Diag Imaging Result Document ---
PROCEDURE NAME: CT THORAX W/O CONTRAST - 11/01/2016 CT CHEST: A CT dose reduction protocol was used. COMPARISON: 10/25/2016 FINDINGS: There is severe worsening consolidation throughout both lower lobes which are now nearly completely consolidated with large air bronchograms. Right middle lobe is also now almost completely consolidated with a persistent internal cavity. Stable right upper lobe pulmonary nodule. There is worsening smooth interlobular septal thickening throughout the upper lobes mostly on the right, nonspecific but suggesting pulmonary edema. There are new patchy infiltrates in the left upper lobe as well. There are worsening small pleural effusions. Stable moderate pericardial effusion. IMPRESSION: Severe worsening from prior. Bilateral multilobar pneumonia is suggested. Pleural effusions. Pericardial effusion. [facility]
[2016-11-01] MEDS: PROTONIX IV SCH ×2 (08:04→20:03)
[2016-11-01] MEDS: PAXIL PO SCH (08:04)
[2016-11-01] MEDS: NICODERM PATCH TD SCH (08:04)
--- NOTE | 2016-11-01 09:12 | PROGRESS NOTE ---
DATE: 11/01/2016 PRESENT ILLNESS: The patient has worsening pulmonary infiltrates as noted on the CT scan obtained yesterday by Dr. Durand. MEDICATIONS: This is day 7 of treatment with a combination of vancomycin and meropenem. PHYSICAL EXAMINATION: Vital Signs: Temperature is 98.4 degrees, pulse 87, respirations 16, blood pressure 90/45. General: This is a somewhat ill-appearing, middle-aged female. She actually to me looks a little bit better than she has in the past few days. She is not having nearly the amount of pain she had earlier and she seems to be less dyspneic. Lungs: There were bibasilar rales. Cardiovascular: Heart rate is regular. Abdomen: Soft and nontender. LAB AND X-RAY: The patient's CT scan showed worsening of the basilar pulmonary infiltrates. The patient's CBC shows a white count of 8770, hemoglobin 11.5, and platelet count 413,000. The blood cultures thus far are sterile. Sputum is growing normal dontae. Influenza swab is negative. ASSESSMENT AND PLAN: I agree with Dr. Durand's plan to continue with the antibiotics and consider total parenteral nutrition if she cannot get nutrition down. COMORBIDITIES: Include diabetes and cigarette smoking.
[2016-11-01] MEDS: LOVENOX SUBQ SCH (10:15)
[2016-11-01 10:39] LABS: HIV ANTIBODY SCREEN SEE COMMENTS (())
[2016-11-01] MEDS: LEVEMIR SUBQ SCH ×2 (11:57→20:04)
[2016-11-01] MEDS ORDERED: LASIX IV ONE (12:46)
[2016-11-01] MEDS ORDERED: KLOR-CON PO ONE (15:02)
--- NOTE | 2016-11-01 15:27 | PROGRESS NOTE ---
DATE: 11/01/2016 SUBJECTIVE: Patient reports feeling fine. Able to walk to the bathroom without getting short of breath. Denies any fever or chills. OBJECTIVE: Vital Signs: Temperature 98.4 degrees, heart rate 91, respiratory rate 18, blood pressure 102/75, O2 saturation 94% on 4 L nasal cannula. General Examination: This is a 46-year- old female lying in bed, in no acute distress. HEENT: Head is normocephalic, atraumatic. Anicteric sclerae and pale conjunctivae. Mucous membranes moist. Neck: Supple. No JVD. No carotid bruits. No lymphadenopathy. No thyromegaly. Cardiovascular: S1, S2 heard. No murmurs, gallops, or rubs. Regular rate and rhythm. Respiratory: Some coarse breath sounds in both bases. Patient is not using any accessory muscles or having work of breathing. Abdomen: Soft, nontender to palpation. Bowel sounds present. No organomegaly. Extremities: No clubbing, cyanosis, or edema. Peripheral pulses present in both legs. Neurological: Patient is alert and oriented x3. Able to move her extremities. Cranial nerves 2-12 grossly normal. LABORATORY DATA: White cell count 8.77, hemoglobin 11.5, hematocrit 35.9, platelets 413,000. BMP unremarkable except potassium 3.2. ASSESSMENT AND PLAN: 1. Cavitary lung lesion with pneumonia. Dr Mcmanus is following this patient. Currently, patient is on vancomycin and meropenem. Today is #[address] Durand has been consulted and he recommends to continue with the current antibiotics. He ordered a sputum culture and he ordered a CT of the chest that shows worsening infiltrates. At this point, we are going to continue with the same management. We will see what Dr. Mcmanus and Dr. Durand have to say regarding this patient. Their help is appreciated. 2. Nausea and vomiting. That condition is completely resolved. Patient is getting breathing better according to her. 3. Situational depression. Patient is on Paxil. We will continue with the same management. 4. Tobacco dependence. Patient is NicoDerm patch. Patient already advised to stop smoking.
[2016-11-01] MEDS: VALIUM PO PRN (18:20)
[2016-11-01] MEDS: SODIUM CHLORIDE 0.9% INJ SCH (20:03)
[2016-11-02] MEDS: DILAUDID IV PRN ×7 (00:44→22:52)
[2016-11-02] MEDS: TYLENOL PO PRN (03:42)
[2016-11-02] MEDS: MERREM 1 GM in NS 50 ML IV SCH ×3 (05:06→22:57)
[2016-11-02] MEDS: DUONEB (A & A) INH SCH ×4 (05:35→20:25)
[2016-11-02] MEDS: HUMULIN R SUBQ SCH ×4 (06:11→20:36)
[2016-11-02 06:21] LABS: MANUAL DIFF NEEDED? NO
[2016-11-02] MEDS ORDERED: INSULIN PEN NEEDLES ONE (06:24)
[2016-11-02 07:03] LABS: BASO% 0.2 % (0.0-0.8); EOS# 0.06 X1000 (0.0-0.7); EOS% 0.7 % (0.0-10.0); HEMATOCRIT 37.2 % (37.0-47.0); HEMOGLOBIN 11.8 g/dL (12.0-16.0); IMM GRAN# 0.08 X1000 (0.0-0.04); IMM GRAN% 0.9 % (0.0-0.5); LYMPH# 1.55 X1000 (1.2-3.4); LYMPH% 17.1 % (20.5-51.1); MCH 28.4 PG (27-31); MCHC 31.7 g/dL (33-37); MCV 89.6 FL (81-99); MONO# 0.71 X1000 (0.11-0.59); MONO% 7.8 % (1.7-9.3); MPV 9.4 FL (7.4-10.4); NEUT% 73.3 % (42.2-75.2); PLT 406 X1000 (130-400); RBC 4.15 XMIL (4.2-5.4)
[2016-11-02 07:09] LABS: AGAP 8; BUN 10 mg/dL (8-22); CHLORIDE 98 mmol/L (98-107); COSMO 281; POTASSIUM 4.2 mmol/L (3.5-5.1); SODIUM 142 mmol/L (136-145); TCO2 36 mmol/L (25-35)
--- NOTE | 2016-11-02 08:01 | Diag Imaging Result Document ---
PROCEDURE NAME: CHEST-2 VIEWS - 11/02/2016 CHEST X-RAY, 2 VIEWS: COMPARISON: 10/30/2016. FINDINGS: There is decreased density of the infiltrate throughout the right lung base. There are stable [id number] pleural effusions. Stable left basilar consolidation as well. Heart size and pulmonary vascularity remain normal. IMPRESSION: Improved aeration of the right lung base.
[2016-11-02] MEDS: PAXIL PO SCH (08:02)
[2016-11-02] MEDS: SODIUM CHLORIDE 0.9% INJ SCH ×2 (08:02→19:54)
[2016-11-02] MEDS: NICODERM PATCH TD SCH (08:02)
[2016-11-02] MEDS: PROTONIX IV SCH ×2 (08:02→19:54)
[2016-11-02] MEDS: LEVEMIR SUBQ SCH ×2 (08:03→23:14)
[2016-11-02] MEDS: LOVENOX SUBQ SCH (09:40)
[2016-11-02] MEDS: ZOFRAN IV PRN ×4 (09:41→22:58)
--- NOTE | 2016-11-02 10:11 | PROGRESS NOTE ---
DATE: 11/02/2016 PRESENT ILLNESS: The patient has bilateral pulmonary infiltrates. On chest x-ray done yesterday the infiltrates are getting smaller. MEDICATIONS: This is day 8 of treatment with a combination of vancomycin and meropenem. PHYSICAL EXAMINATION: Vital Signs: Temperature is 97.6 degrees, pulse 88, respirations 14, blood pressure 94/54. General: The patient appears to be feeling much better. She is alert. She is not coughing and is not complaining of pain. Lungs: Clear to auscultation. Cardiovascular: Heart rate is regular. Abdomen: Soft and nontender. Ears, nose, and throat: No drainage noted from the nose or ears. LAB AND X-RAY: The CBC for today shows a white count of 9,060, hemoglobin 11.8, and platelet count 406,000. Creatinine is 0.5. Antibody to HIV is negative. Sputum grew normal dontae and yeast. Chest x-ray shows improved bibasilar infiltrates. ASSESSMENT AND PLAN: I plan to continue the patient's current antibiotics over the weekend and hopefully discharge the patient on SaturdayNovember 05 on oral antimicrobial therapy. I am going to get a chest x-ray the day before to make sure that the patient is showing continued improvement in her pneumonia. The patient's comorbidities are diabetes mellitus and cigarette smoking.
[2016-11-02] MEDS ORDERED: LASIX IV ONE (12:00)
[2016-11-02] MEDS: VALIUM PO PRN (15:52)
--- NOTE | 2016-11-02 16:33 | PROGRESS NOTE ---
DATE: 11/02/2016 SUBJECTIVE: Patient is feeling fine. Able to walk in the hallways and not getting short of breath. OBJECTIVE: Vital Signs: Temperature 97.9 degrees, heart rate 85, respiratory rate 14, blood pressure 102/59, O2 saturation 96% on 4 L nasal cannula. General Examination: This is a 46-year- old female lying in bed, in no acute distress. HEENT: Head is normocephalic, atraumatic. Anicteric sclerae and pale conjunctivae. Mucous membranes moist. Neck: Supple. No JVD noted. No carotid bruits. No lymphadenopathy. No thyromegaly. Cardiovascular: S1, S2 heard. No murmurs, gallops, or rubs. Regular rate and rhythm. Respiratory: Clear bilaterally to auscultation. No work of breathing. Some coarse breath sounds in both bases, but patient is not using any accessory muscles or having work of breathing. Abdomen: Soft, nontender to palpation. Bowel sounds present. No organomegaly. Extremities: No clubbing, cyanosis, or edema. Peripheral pulses present in both legs. Neurological: Patient alert and oriented x3. Able to move her extremities. Cranial nerves 2-12 grossly normal. LABORATORY DATA: Reviewed. ASSESSMENT AND PLAN: 1. Cavitary lung lesion with pneumonia. Patient is currently on vancomycin and meropenem. Today is day #7. Dr. Mcmanus from Infectious Disease is following this patient and recommends to keep this patient over the weekend. We will follow his recommendations. Also, Dr. Durand is following this patient. A sputum culture has been ordered, but it was not revealing. 2. At this point, we are going to continue with the same management. 3. Nausea and vomiting. That condition is resolved. 4. Situational depression. Patient is on Paxil. We will continue with the same management. 5. Tobacco dependence. Patient is on nicotine patch. Patient already advised to stop smoking. cc: Manish English MD
[2016-11-02] MEDS: VANCOMYCIN 1,250 MG in NS 250 ML IV SCH (19:54)
[2016-11-03] MEDS: ZOFRAN IV PRN ×4 (03:00→20:40)
[2016-11-03] MEDS: DILAUDID IV PRN ×4 (03:00→20:40)
[2016-11-03] MEDS: DUONEB (A & A) INH SCH ×4 (03:10→21:25)
[2016-11-03] MEDS: HUMULIN R SUBQ SCH ×4 (05:40→20:40)
[2016-11-03] MEDS: TYLENOL PO PRN ×2 (06:00→18:30)
[2016-11-03] MEDS: MERREM 1 GM in NS 50 ML IV SCH ×2 (06:00→13:15)
[2016-11-03] MEDS: LOVENOX SUBQ SCH (09:00)
[2016-11-03] MEDS: VANCOMYCIN 1,250 MG in NS 250 ML IV SCH (09:00)
[2016-11-03] MEDS: PROTONIX IV SCH ×2 (09:00→20:40)
[2016-11-03] MEDS: SODIUM CHLORIDE 0.9% INJ SCH (09:00)
[2016-11-03] MEDS: NICODERM PATCH TD SCH (09:00)
[2016-11-03] MEDS: PAXIL PO SCH (09:00)
[2016-11-03] MEDS: LEVEMIR SUBQ SCH ×2 (09:00→20:40)
[2016-11-03] MEDS ORDERED: TESSALON ONE (13:11)
[2016-11-03] MEDS: TESSALON PO SCH ×2 (13:15→20:40)
--- NOTE | 2016-11-03 14:18 | PROGRESS NOTE ---
DATE: 11/03/2016 SUBJECTIVE: The patient reports having bad cough today. Able to walk into the hallways. She is not getting short of breath. Denies any fever or chills. OBJECTIVE: Vitals: Temperature 98.2, heart rate 81, respiratory rate 18, blood pressure 97/59, O2 saturation 95% on 3 L nasal cannula. General: This is a 46-year-old female lying in bed in no acute distress. HEENT: Head is normocephalic and atraumatic. . Neck: Supple, no JVD noted, no carotid bruits, no lymphadenopathy. Cardiovascular: S1, S2 heard, no murmurs, gallops, or rubs, and regular rate and rhythm. Respiratory: Coarse breath sounds are still present in both bases. The patient is not using any accessory muscles or having work of breathing. Abdomen: Soft, nontender to palpation, bowel sounds present, no organomegaly. Extremities: No clubbing, cyanosis, or edema. Peripheral pulses present in both legs. Neurological: Patient is alert and oriented x3, moves four extremities. Cranial nerves 2-12 grossly normal. LABORATORY DATA: BMP from today is unremarkable as well as the CBC with a hemoglobin of 11.1 today. ASSESSMENT AND PLAN: 1. Cavitary lung lesion with pneumonia. The patient continues to improve with oxygen needs coming down. Now she is requiring 3 L of oxygen only. She denies any fever or chills and able to walk around without getting any shortness of breath. At this point, we are going to continue with monitoring. Currently the patient is on vancomycin and Zosyn. Today is day #[address] Mcmanus from Infectious Disease is following this patient. Will continue with both antibiotics. 2. Nausea and vomiting. The patient is eating okay now, denies any nausea or vomiting. 3. Situational depression. The patient is on Paxil. Will continue with the same management. 4. Tobacco dependence. The patient is on NicoDerm patch. The patient was already advised to stop smoking. cc: Manish English MD
[2016-11-03 17:11] LABS: BASO% 0.4 % (0.0-0.8); EOS# 0.12 X1000 (0.0-0.7); EOS% 1.4 % (0.0-10.0); HEMATOCRIT 35.5 % (37.0-47.0); HEMOGLOBIN 11.1 g/dL (12.0-16.0); IMM GRAN# 0.07 X1000 (0.0-0.04); IMM GRAN% 0.8 % (0.0-0.5); LYMPH# 2.24 X1000 (1.2-3.4); MANUAL DIFF NEEDED? NO; MCH 27.8 PG (27-31); MCHC 31.3 g/dL (33-37); MONO# 0.78 X1000 (0.11-0.59); MONO% 9.4 % (1.7-9.3); MPV 9.4 FL (7.4-10.4); PLT 393 X1000 (130-400); RBC 3.99 XMIL (4.2-5.4)
[2016-11-03 17:30] LABS: AGAP 8; BUN 10 mg/dL (8-22); CALCIUM 8.7 mg/dL (8.8-10.2); CHLORIDE 94 mmol/L (98-107); COSMO 276; POTASSIUM 4.5 mmol/L (3.5-5.1); SODIUM 137 mmol/L (136-145); TCO2 35 mmol/L (25-35)
[2016-11-03] MEDS: VALIUM PO PRN (18:30)
[2016-11-04] MEDS: VANCOMYCIN 1,250 MG in NS 250 ML IV SCH ×2 (00:22→14:09)
[2016-11-04] MEDS: TESSALON PO SCH ×5 (02:17→16:30)
[2016-11-04] MEDS: DUONEB (A & A) INH SCH ×4 (03:31→20:01)
[2016-11-04] MEDS: DILAUDID IV PRN ×5 (05:21→23:09)
[2016-11-04] MEDS: ZOFRAN IV PRN ×3 (05:22→23:05)
[2016-11-04 07:08] LABS: MANUAL DIFF NEEDED? NO
[2016-11-04 07:12] LABS: BASO% 0.2 % (0.0-0.8); EOS% 1.2 % (0.0-10.0); HEMATOCRIT 36.2 % (37.0-47.0); HEMOGLOBIN 11.6 g/dL (12.0-16.0); IMM GRAN# 0.07 X1000 (0.0-0.04); IMM GRAN% 0.8 % (0.0-0.5); LYMPH# 2.25 X1000 (1.2-3.4); LYMPH% 26.6 % (20.5-51.1); MCH 28.2 PG (27-31); MCV 88.1 FL (81-99); MONO# 0.61 X1000 (0.11-0.59); MONO% 7.2 % (1.7-9.3); MPV 9.8 FL (7.4-10.4); PLT 379 X1000 (130-400); RBC 4.11 XMIL (4.2-5.4)
[2016-11-04 07:29] LABS: AGAP 8; BUN 13 mg/dL (8-22); CALCIUM 9.3 mg/dL (8.8-10.2); CHLORIDE 97 mmol/L (98-107); COSMO 272; POTASSIUM 4.6 mmol/L (3.5-5.1); SODIUM 136 mmol/L (136-145); TCO2 31 mmol/L (25-35)
[2016-11-04] MEDS: HUMULIN R SUBQ SCH ×4 (07:54→23:07)
[2016-11-04] MEDS: MERREM 1 GM in NS 50 ML IV SCH ×3 (08:00→23:08)
[2016-11-04] MEDS: SODIUM CHLORIDE 0.9% INJ SCH (09:26)
[2016-11-04] MEDS: PROTONIX IV SCH ×2 (09:26→23:05)
[2016-11-04] MEDS: LOVENOX SUBQ SCH (09:28)
[2016-11-04] MEDS: NICODERM PATCH TD SCH (09:28)
[2016-11-04] MEDS: PAXIL PO SCH (09:28)
[2016-11-04] MEDS: LEVEMIR SUBQ SCH ×2 (09:29→12:32)
--- NOTE | 2016-11-04 10:08 | Diag Imaging Result Document ---
PROCEDURE NAME: CHEST-2 VIEWS - 11/04/2016 CHEST 2 VIEWS: Compared with 11/02/2016. FINDINGS: There has been mild decrease in right basilar opacity, most notably at the posterior right base as seen on the lateral view. There has been interval decrease in small right pleural effusion. There is stable small left pleural effusion. There is no pneumothorax seen. There is an accessory azygous fissure again seen consistent with normal variation. The right heart border is largely obscured but heart size appears grossly within normal limits and stable. IMPRESSION: Mild decrease in right basilar opacity. Decrease in small right pleural effusion. Stable small left pleural effusion.
[2016-11-04] MEDS: DUONEB (A & A) INH PRN (11:20)
--- NOTE | 2016-11-04 16:14 | PROGRESS NOTE ---
DATE: 11/04/2016 SUBJECTIVE: Patient is feeling fine. Denies any complaint. Able to walk in the hallways. OBJECTIVE: Vital Signs: Temperature 98.1 degrees, heart rate 77, respiratory 14, blood pressure 108/69, and O2 saturation 93% on 4L nasal cannula. General: This a 46-year-old female lying in bed in no acute distress H. HEENT: Head is normocephalic, atraumatic. Anicteric sclerae and pale conjunctivae. Mucous membranes moist. Neck: Supple. No JVD noted. No carotid bruits. No lymphadenopathy. No thyromegaly. Cardiovascular: S1 and S2 heard. No murmurs, gallops, or rubs. Regular rate and rhythm. Respiratory: Coarse breath sounds are still present in both lungs. The patient is not using any accessory muscles or having work of breathing. Abdomen: Soft, nontender to palpation. Bowel sounds present. No organomegaly. Extremities: No clubbing, cyanosis, or edema. Peripheral pulses present in both legs. Neurological: Patient alert and oriented x3. Able to move all 4 extremities. Cranial nerves 2-12 grossly normal. LABORATORY DATA: Reviewed. ASSESSMENT AND PLAN: 1. Cavitary lung lesion with pneumonia. Patient continues to improve, with oxygen needs now between 3 and 4 liters. The patient is able to walk around in the hallways. X-ray shows some improvement, so at this point we are going to continue with vancomycin and Zosyn. Today is day #[address] Mcmanus asked me to see this patient over the weekend, and will check with him before she leaves as to what medication she is supposed to continue at home and if that is going to be IV or p.o. 2. Nausea and vomiting, resolving. Patient is eating okay. 3. Situational depression. Patient is on Paxil. We will continue with the same management. 4. Tobacco dependence. Patient is on NicoDerm patch. Patient already advised to stop smoking. cc: Manish English MD
[2016-11-04] MEDS: HYDROXYZINE PO PRN (19:41)
[2016-11-04] MEDS: MIRALAX PO SCH (23:04)
[2016-11-05] MEDS: LEVEMIR SUBQ SCH ×2 (02:18→10:26)
[2016-11-05] MEDS: MERREM 1 GM in NS 50 ML IV SCH ×2 (02:19→10:04)
[2016-11-05] MEDS: VANCOMYCIN 1,250 MG in NS 250 ML IV SCH (02:28)
[2016-11-05] MEDS: DILAUDID IV PRN ×2 (02:53→10:21)
[2016-11-05] MEDS: HYDROXYZINE PO PRN (02:58)
[2016-11-05] MEDS: DUONEB (A & A) INH SCH ×2 (03:09→08:06)
[2016-11-05] MEDS: VALIUM PO PRN (04:49)
[2016-11-05 06:26] LABS: MANUAL DIFF NEEDED? NO
[2016-11-05 06:31] LABS: BASO% 0.4 % (0.0-0.8); EOS# 0.09 X1000 (0.0-0.7); HEMOGLOBIN 11.4 g/dL (12.0-16.0); IMM GRAN# 0.07 X1000 (0.0-0.04); IMM GRAN% 0.8 % (0.0-0.5); LYMPH# 2.55 X1000 (1.2-3.4); LYMPH% 27.9 % (20.5-51.1); MCH 28.8 PG (27-31); MCHC 32.6 g/dL (33-37); MCV 88.4 FL (81-99); MONO# 0.69 X1000 (0.11-0.59); MONO% 7.5 % (1.7-9.3); MPV 9.6 FL (7.4-10.4); NEUT% 62.4 % (42.2-75.2); PLT 365 X1000 (130-400); RBC 3.96 XMIL (4.2-5.4)
[2016-11-05] MEDS: HUMULIN R SUBQ SCH ×2 (06:55→10:50)
--- NOTE | 2016-11-05 08:36 | PROGRESS NOTE ---
DATE: 11/05/2016 PRESENT ILLNESS: The patient has a bilateral pneumonia. Both clinically and radiographically, the pneumonia is getting better. MEDICATIONS: The patient currently is receiving vancomycin and meropenem. PHYSICAL EXAMINATION: Vital Signs: Temperature is 97.6 degrees, pulse 82, respirations 16, blood pressure 93/48. General: This is a fairly healthy-appearing middle-aged female. She is in no acute distress. Ears, Nose, and Throat: No drainage noted from the nose or ears. Lungs: Clear to auscultation. Cardiovascular: Regular heart rate. Abdomen: Soft and nontender. LAB AND X-RAY: Chest x-ray shows improvement in the right lung infiltrate and pleural effusion. The CBC for today shows a white count of 9140, hemoglobin 11.7, and platelet count is 265,000. Creatinine is 0.6. GFR is greater than 60. ASSESSMENT AND PLAN: Patient has pneumonia. My plan is to discharge her today on a combination of clindamycin and Cipro. I have requested that the patient see me in the office 2 weeks after discharge. COMORBIDITIES: Diabetes mellitus and cigarette smoking. cc: Quinn Mcmanus MD
[2016-11-05] MEDS: NICODERM PATCH TD SCH (10:04)
[2016-11-05] MEDS: MIRALAX PO SCH (10:04)
[2016-11-05] MEDS: LOVENOX SUBQ SCH (10:05)
[2016-11-05] MEDS: TESSALON PO SCH ×2 (10:05→13:03)
[2016-11-05] MEDS: PAXIL PO SCH (10:05)
[2016-11-05] MEDS: SODIUM CHLORIDE 0.9% INJ SCH (10:05)
[2016-11-05] MEDS: PROTONIX IV SCH (10:05)
[2016-11-05] MEDS: ZOFRAN IV PRN (10:22)
[2016-11-05 11:50] VITALS: BP 87/59
--- NOTE | 2016-11-06 14:21 | DISCHARGE SUMMARY ---
ADMISSION DATE: 10/25/2016 DISCHARGE DATE: 11/05/2016 CONSULTATIONS: 1. Dr. Quinn Mcmanus of Infectious Disease. 2. Dr. Isabelle Arias with Gastroenterology. 3. Dr. Jose Durand with Pulmonology. PROCEDURES: 1. Chest CT showed a 5.4 x 4.2 cm cavitary lesion of the right middle lobe, and a 1 cm noncalcified nodule at the superior right upper lobe. Possible small lymph node at the superior right. Mild corneal mediastinal adenopathy, small pericardial effusion, tiny bilateral pleural effusions. 2. Abdominal ultrasound showed question of small amount of non-shadowing sludge layering in the gallbladder, lumen versus interpretation artifact. No stones. No gallbladder wall thickening or surrounding fluid to indicate cholecystitis by ultrasound. Mildly prominent liver, trace right pleural effusion. Gastric emptying study was normal. 3. HIDA scan showed depressed gallbladder EF suggesting possible hypokinesis. Followup chest CT showed severe worsening from prior bilateral multilobar pneumonia, pleural effusions and pericardial effusion. Chest x-ray on 11/02, showed improved aeration of the right lung base. Chest x-ray on 11/05/2015 showed mild decrease in right basilar opacity, decrease in right small pleural effusion, and a stable small left effusion. DISCHARGE DIAGNOSES: 1. Cavitary lung lesion with pneumonia. Clinically and radiographically the patient has improved, but does require 3 to 4 L of O2. Patient is being evaluated for home O2, as well as, social services director who is looking for payment, as the patient is self-pay. She will go home on p.o. antibiotics and follow up with Dr. Quinn Mcmanus in 2 weeks. 2. Nausea, vomiting, resolved. Patient tolerating diet. 3. Situational depression. Continue with Plavix. 4. Tobacco dependence. The patient has been advised about smoking cessation, as well as, the means to quit. 5. Diabetes mellitus. The patient was on sliding scale while in the hospital. She will be discharged on metformin 500 mg p.o. b.i.d. HOSPITAL COURSE: Briefly, Ms Huitron is a 46-year-old female, with a history of nonepileptic seizures, diabetes mellitus type 2, nicotine dependence, anxiety and depression, who reported to the ED with 2 weeks of upper respiratory congestion, nasal congestion and cough. She has had a child that has been sick with a cold. On the day of admission, she felt more short of breath and worsening cough. She was coughing up brown sputum and, was complaining of chest wall pain with cough. She was having subjective fever and chills. No exertional chest pain. No lower extremity edema and orthopnea. Chest x-ray done in the ED showed a cavitary lesion in the right lower lung. Her lab work showed leukocytosis, as well as, elevated liver functions. The patient did have an episode of mild hypotension with blood pressures in the high 80s, that was corrected with IV fluids in the ED. The patient was admitted for a cavitary pneumonia, started on meropenem. Also had a chest CT done with supplemental O2, DuoNebs, and aggressive pulmonary toilet. Patient was also hyperglycemic. She was initially given IV insulin and started on sliding scale. Patient had an abdominal ultrasound that did show a questionable amount of non-shadowing sludge layering in the gallbladder, versus reverberation artifact. No stones were identified. There was no gallbladder wall thickening or surrounding fluid to indicate cholecystitis. Mildly prominent liver. Patient also underwent a normal gastric emptying study. Her liver function did improve considerably throughout her hospital course. Suspected that it was related to her pneumonia with possible bile syndrome. A HIDA scan was also performed, and did show some hypokinesis. Patient was also initiated on vancomycin, as well as, meropenem, followed by Dr. Quinn Mcmanus with Infectious Disease. Dr. Durand was consulted in reference to worsening cavitary lung disease. Patient continued to have nausea and vomiting, as well as, poorly controlled diabetes mellitus, and has now developed bilateral pneumonia. Followup chest x-rays, the infiltrates are getting smaller. Patient continued on her current antibiotic coverage. The patient was still requiring the use of O2, anywhere from 3 to 4 L. She was able to get up and walk the hallways clinically and related classically. The patient is improving. Her nausea and vomiting did resolve. The patient was tolerating a diet. Dr. Quinn Mcmanus felt that the patient was appropriate for discharge, and could go on p.o. antibiotics with clindamycin 300 mg p.o. q.8 hours and Cipro 500 mg q.12 hours, both for the next 7 days, and follow up with him in [address] Hernandez was also in agreement with this. VITAL SIGNS AT TIME OF DISCHARGE: Temperature is 98.7, heart rate 80, respirations 16, blood pressure is 91/51, O2 was 94% on 4 L. The patient was set up for home O2 evaluation, as well as, social services director, as patient is self-pay. To help set up a payments, as well as, any medication help. DISCHARGE DIET: Diabetic. DISCHARGE MEDICATIONS: 1. Cipro 500 mg p.o. q.12 hours for the next 7 days. 2. Clindamycin 3 mg p.o. q.8 hours for the next 7 days. 3. Valium 2 mg p.o. q.12. 4. Glucophage 500 mg p.o. b.i.d. 5. Paxil 1 tab p.o. daily. FOLLOW UP: Patient is being discharged home with home O2. She will follow up with Dr. Quinn Mcmanus in 2 weeks. She will also need to follow up with a primary care physician from the list that has been provided to her, in the next 7 to 10 days. Patient can return to the ED for any worsening of symptoms. Again, it has been discussed again smoking cessation, as well as, the means to quit. TIME SPENT: This has been a 30 minute discharge. Dictated by REMY Singh for Manish English MD cc: Manish English MD
== END 2016-11-05 15:16 | disposition home or self-care (01) ==
LOC: EDBD → ED 05:23 → EDIPHOLD 09:54 → 4N 14:41
PROVIDERS: ATTEND Internal Medicine

== ENCOUNTER 2019-05-24 19:49 | Inpatient (IN) ==
[2019-05-24] MEDS ORDERED: BENTYL IM ONE (21:34)
[2019-05-24] MEDS ORDERED: NS 1,000 ML IV ONE ×2 (21:34→23:23)
[2019-05-24] MEDS ORDERED: ZOFRAN IV ONE (21:34)
[2019-05-24] MEDS ORDERED: MORPHINE IV ONE (21:34)
[2019-05-24 22:58] LABS: BASO# 0.03 X1000 (0.0-0.2); BASO% 0.3 % (0.0-0.8); EOS# 0.11 X1000 (0.0-0.7); EOS% 1.3 % (0.0-10.0); HEMATOCRIT 42.2 % (37.0-47.0); HEMOGLOBIN 14.5 g/dL (12.0-16.0); IMM GRAN# 0.02 X1000 (0.0-0.04); IMM GRAN% 0.2 % (0.0-0.5); LYMPH# 3.38 X1000 (1.2-3.4); LYMPH% 39.2 % (20.5-51.1); MCH 28.7 PG (27-31); MCHC 34.4 g/dL (33-37); MCV 83.6 FL (81-99); MONO# 0.59 X1000 (0.11-0.59); MONO% 6.8 % (1.7-9.3); MPV 12.1 FL (7.4-10.4); NEUT% 52.2 % (42.2-75.2); PLT 199 X1000 (130-400); RBC 5.05 XMIL (4.2-5.4); RDW 12.4 % (11.5-14.5); WBC 8.63 X1000 (4.8-10.8)
[2019-05-24 23:16] LABS: ESTIMATED GFR > 60
[2019-05-24 23:18] LABS: ACETONE SERUM NEGATIVE (NEGATIVE)
[2019-05-24 23:22] LABS: AGAP 10; ALBUMIN 4.2 g/dL (3.5-5.0); ALKALINE PHOSPHATASE 95 U/L (32-104); BUN 19 mg/dL (8-22); CALCIUM 10.3 mg/dL (8.8-10.2); CHLORIDE 98 mmol/L (98-107); COSMO 292; CREATININE 0.7 mg/dL (0.5-0.9); GOT 6 U/L (10-30); GPT 6 U/L (10-36); LIPASE 25 U/L (13-60); POTASSIUM 4.4 mmol/L (3.5-5.1); SODIUM 134 mmol/L (136-145); TCO2 26 mmol/L (25-35); TOTAL PROTEIN 7.2 g/dL (6.3-8.3)
[2019-05-24 23:23] LABS: GLUCOSE 482 mg/dL (70-104)
[2019-05-24] MEDS ORDERED: HUMULIN R IV ONE (23:23)
[2019-05-24] MEDS ORDERED: FLAGYL 500 MG/NS 500 MG/100 ML IVPB IV ONE (23:35)
[2019-05-24] MEDS ORDERED: CIPRO 400 MG/D5W 400 MG/200 ML IVPB IV ONE (23:35)
[2019-05-25] LABS: BE 2.7 mmoll (-3.0-3.0); BLOOD TYPE ARTERIAL; HCO3-(ACT) 26.8 mmoll (20.0-26.0); METHB 1.3 % (0.0-1.5); O2(CT) 17.5 mL/dL (15.0-23.0); PCO2(98.6) 44 mmHg (35-45); PO2(98.6) 88 mmHg (60-100); SAMPLE BLOOD; SAO2 99.1 % (95.0-100.0); THB 14.1 g/dL (11.5-17.4); pH(98.6) 7.41 (7.35-7.45)
[2019-05-25 00:02] LABS: MODALITY ROOM AIR
[2019-05-25 00:03] LABS: ALLEN TEST NO
[2019-05-25] MEDS ORDERED: HUMULIN R (PARKWAY) ONE (00:21)
[2019-05-25] MEDS ORDERED: ZOFRAN IV PRN (01:13)
[2019-05-25] MEDS ORDERED: MORPHINE IV PRN (01:13)
[2019-05-25] MEDS ORDERED: TYLENOL PO PRN ×2 (01:13→04:43)
[2019-05-25] MEDS ORDERED: NS 1,000 ML IV ONE ×3 (01:13→05:33)
--- NOTE | 2019-05-25 02:08 | PROVIDER DOCUMENTATION ---
This chart was entered by Jadyn Beavers Scribe, acting as scribe for Suresh Smith MD. HPI-Abdominal Pain/GI Problem - General Chief Complaint: Abdominal Pain Stated Complaint: ABD PAIN/"BLACK OUTS" Time Seen by Provider: 05/24/19 21:26 Source: patient Allergies/Adverse Reactions: Patient Allergies Allergy/AdvReac Type Severity Reaction Status Date / Time Penicillins Allergy Intermediate HIVES Verified 04/24/19 01:11 Home Medications: Home Medication List Medication Instructions Recorded Confirmed Last Taken Type Metformin [Glucophage] 1,000 mg PO BID #120 tab 05/07/19 05/24/19 Unknown Rx Paroxetine HCl [Paxil] 40 mg PO DAILY #30 tab 05/07/19 05/24/19 Unknown Rx Phenytoin [Dilantin] 100 mg PO TID #90 cap 05/07/19 05/24/19 Unknown Rx - History of Present Illness-ABD Nature of Presenting Problems: 48 y/o female presents to the ED with complaint of mid abdominal pain radiating to the left flank/left back with dizziness and nausea. Abdominal Pain Onset Location: reports: epigastric Pain Radiation: reports: back (left) Timing: reports: still present Review of Systems - Adult - REVIEW OF SYSTEMS - ADULT Constitutional: reports: fever (subjective). denies: night sweats, weight gain Eyes: reports: no symptoms reported Ears, Nose, Mouth & Throat: reports: no symptoms reported Cardiovascular: reports: no symptoms reported Respiratory: denies: hemoptysis, shortness of breath, wheezing Gastrointestinal: reports: abdominal pain, diarrhea, nausea, vomiting Genitourinary: reports: hesitency. denies: dysuria, discharge, hematuria Musculoskeletal: reports: no symptoms reported Integumentary: reports: no symptoms reported Neurological: reports: no symptoms reported Psychiatric: reports: no symptoms reported Endocrine: reports: no symptoms reported Hematologic/Lymphatic: reports: no symptoms reported Allergic/Immunologic: reports: no symptoms reported All Other Systems: Reviewed and Negative Past History - Adult - PAST MEDICAL HISTORY-ADULT Review of Records: reports: Old Records Reviewed, Nursing Assessment Review, Medications Reviewed Major Childhood Illnesses: reports: denies history Cardiovascular: reports: denies history Respiratory: reports: pneumonia Gastrointestinal: reports: denies history Obstetrical/Gynecological: reports: denies history Genitourinary: reports: denies history Musculoskeletal: reports: denies history Neurological: reports: Seizures/Epilepsy Psychiatric: reports: depression Endocrine/Immune: reports: Diabetes Other Conditions: reports: denies history - PRIOR SURGERIES/PROCEDURES Surgical/Procedure History: reports: hysterectomy, , orthopedic (extremity), other - PRIOR HOSPITALIZATIONS Prior Hospitalizations: reports: none - IMMUNIZATION STATUS Childhood Immunizations: UTD, See Nurse Assessment Flu Vaccine: See Nurse Assessment - FAMILY HISTORY Family History: reviewed, not pertinent - SOCIAL HISTORY Smoking: cigarettes Living Situation: family Physical Exam-General - PHYSICAL EXAM-ADULT Initial Vital Signs Reviewed: Yes - CONSTITUTIONAL General Appearance: alert. negative: appears well - HEAD, EARS, NOSE, MOUTH & THROAT HENMT: normocephalic/atraumatic. negative: moist mucous membranes - RESPIRATORY Respiratory: lungs clear, normal breath sounds. negative: rales, rhonchi, wheezing - CARDIOVASCULAR Cardiovascular: regular rate, rhythm, no edema, no gallop, no murmur - GASTROINTESTINAL (ABDOMEN) Abdominal Exam: soft, guarding, tenderness (generalized), other (left costovertebral tenderness) - MUSCULOSKELETAL Extremity: normal range of motion - SKIN Integumentary: normal color, warm/dry - NEUROLOGIC Neurologic: grossly normal Progress - PLAN OF CARE/RESULTS Progress/Plan/Lab Results: Vital Signs - 8 hr 05/24/19 20:46 Temperature 98.2 F Pulse Rate 95 H Respiratory Rate 20 Blood Pressure 98/68 O2 Sat by Pulse Oximetry 99 Orders Category Date Time Status CBC WITH ELECTRONIC DIFF [HEME] Stat Lab 05/24/19 21:26 Uncollected COMPREHENSIVE METABOLIC PANEL [CHEM] Stat Lab 05/24/19 21:26 Uncollected LIPASE [CHEM] Stat Lab 05/24/19 21:[address] W/POSS RFLX CULT [URINALYSIS] Stat Lab 05/24/19 20:52 Uncolle cted Result Diagrams: 05/24/19 22:42 05/24/19 22:42 - EKG 1 Time of EKG reading by physician:: 02:06 EKG Read and Signed by:: Suresh Smith EKG Interpretation (*Must complete 3 of following elements*): Abnormal Rate: 78 Rhythm: NSR [place]: normal QRS: RBB SD Interval: normal ST Wave: normal - CT/MRI 1 CT Study: Abdomen, Pelvis Impression: Abnormal (1. Findings suggesting an infectious or inflammatory enterocolitis. There is diffuse mesenteric stranding which may represnt changes from mesenteritis/sepsis. There is also diffuse third spacing edema. 2. Moderate pericardial effusion.), See EMR Report - CONSULTS/PCP/HOSPITALIST Notification #1 *Consult/PCP/Hospitalist*: Hospitalist @ [facility] Time Discussed: 01:08 (place in [facility]) Reason/Comments: enterocolitis, mesenteritis, sepsis, third spacing edema, pericardial effus Consult Disposition: Admit Departure - Departure Date of Disposition Decision: 05/25/19 Time of Disposition Decision: 01:12 DIAGNOSIS: Colitis presumed infectious, Pericardial effusion without cardiac tamponade, Uncontrolled type 2 diabetes mellitus with hyperglycemia, without long-term current use of insulin Disposition: ADMITTED INPATIENT 09 Certified Medical Emergency: Emergent Condition: Fair Referrals and Follow-Ups: None,PCP [Primary Care Provider] - - Critical Care Note This patient required my direct & personal management of CC.: Yes Total Time (mins): 40 Critical Care Statement: This patient required my direct personal management to treat or rule out processes, the absence of which, could potentiallly result in sudden, clinically significant life or limb threatening deterioration. Attestation - Physician/ GIA Attestation Patient care was provided by Advanced Practice Provider:: No The physician spent face to face time with patient:: Yes Advanced Practice Provider documentation review:: Supervising physician onsite and consulted in the evaluation and care of this patient. The physician did have a face to face encounter with the patient. This chart was documented by the indicated scribe, (Jadyn Beavers Scribe) and accurately reflects the services I performed and decisions made by me, Suresh Smith MD, as attested by the provider's signature.
[2019-05-25] MEDS ORDERED: FLAGYL 500 MG/NS 500 MG/100 ML IVPB ONE (03:13)
[2019-05-25] MEDS: MORPHINE IV PRN ×3 (04:48→20:15)
--- NOTE | 2019-05-25 04:52 | EKG Report ---
Test Performed on : 05/25/2019 02:03:54 AM Test Reason : pericardial effusion Blood Pressure : / mmHG Vent. Rate : 078 BPM Atrial Rate : 078 BPM P-R Int : 118 ms QRS Dur : 142 ms QT Int : 420 ms P-R-T Axes : 075 064 053 degrees QTc Int : 478 ms Normal sinus rhythm. Right bundle branch block Abnormal ECG When compared with ECG of 07-MAY-2019 11:13, (Unconfirmed) No significant change was found Unconfirmed Result
[2019-05-25] MEDS ORDERED: DUONEB (A & A) INH PRN (04:55)
[2019-05-25] MEDS ORDERED: FLAGYL 500 MG/NS 500 MG/100 ML IVPB IV ONE (05:00)
[2019-05-25] MEDS ORDERED: NS 1,000 ML IV SCH (05:00)
[2019-05-25] MEDS ORDERED: CIPRO 400 MG/D5W 400 MG/200 ML IVPB IV SCH (05:00)
[2019-05-25] MEDS ORDERED: HUMALOG IV SCH (05:00)
[2019-05-25] MEDS: LEVAQUIN 750 MG in NS 150 ML IV SCH (05:49)
[2019-05-25] MEDS: ZOFRAN IV PRN ×3 (05:50→17:20)
[2019-05-25 06:00] LABS: URINE SOURCE CLEAN CATCH
--- NOTE | 2019-05-25 06:03 | Diag Imaging Result Doc PS360 ---
EXAM: CHEST-PORTABLE HISTORY: sob TECHNIQUE: Single view COMPARISON: 04/30/2017 FINDINGS: The lungs are well expanded. The heart is mildly prominent although this is an AP technique. The vessels are not distended. There are no infiltrates. No effusion identified. There is a small nodule in the upper right lung. IMPRESSION: Right upper lung nodule. A CT of the chest is recommended. Electronically signed by Vish Mohamud 05/25/2019 6:01 AM
[2019-05-25] MEDS: HUMALOG SUBQ SCH ×4 (06:12→20:18)
[2019-05-25] MEDS: PRILOSEC PO SCH (06:13)
[2019-05-25 06:25] LABS: BILIRUBIN URINE NEGATIVE (NEGATIVE); BLOOD URINE TRACE (NEGATIVE); COLOR YELLOW; GLUCOSE URINE >1000 mg/dL (NEGATIVE); KETONE URINE NEGATIVE (NEGATIVE); LEUKOCYTES URINE NEGATIVE (NEGATIVE); NITRITE URINE NEGATIVE (NEGATIVE); PROTEIN URINE TRACE mg/dL (NEGATIVE); TURBIDITY URINE CLEAR (CLEAR); UR EPITHELIAL CELLS <10 /HPF (<10); URINE BACTERIA NEGATIVE /HPF; URINE RBC <10 /HPF (<10); URINE WBC <10 /HPF (<10); UROBILINOGEN URINE NORMAL (NORMAL)
[2019-05-25 06:42] LABS: C REACTIVE PROT QUANT 0.63 mg/L (0.00-5.00); MAGNESIUM 1.4 mg/dL (1.5-2.7)
[2019-05-25 06:44] LABS: AGAP 11; BUN 15 mg/dL (8-22); CALCIUM 9.2 mg/dL (8.8-10.2); CHLORIDE 101 mmol/L (98-107); COSMO 281; CREATININE 0.6 mg/dL (0.5-0.9); ESTIMATED GFR > 60; GLUCOSE 205 mg/dL (70-104); POTASSIUM 4.1 mmol/L (3.5-5.1); SODIUM 137 mmol/L (136-145); TCO2 25 mmol/L (25-35)
--- NOTE | 2019-05-25 07:11 | HISTORY AND PHYSICAL ---
PRIMARY CARE PROVIDER: REMY Bhatti. CHIEF COMPLAINT: Abdominal pain. HISTORY OF PRESENT ILLNESS: Ms. Huitron is a 48-year-old, female. She states that she has been having periods of nausea this past week. She has actually had some periods of vomiting a few times this week. She has been having severe abdominal pain, coughing, chills, fever, dizziness, weakness. She has been having watery stools. She has had several periods of blackout spells. She went to [facility], [place] this evening. She did have a CT scan done at [facility], [place]. The CT of the abdomen and pelvis did show infectious or inflammatory enterocolitis with diffuse mesenteric stranding which may represent mesenteritis or sepsis. There is also diffuse third-spacing edema. She also had moderate pericardial effusion. The patient does have a past medical history of diabetes type 2, seizure disorder, depression, and anxiety. The patient states that she has had a weight loss over the past few years. Her weight has been up and down. She is to be greater than 200 pounds. She is currently only 108 pounds. The patient is still currently having a lot of problems with her depression. She is on Paxil at home. However, she does have periods of depression where she has lots of crying since the of her father 5 years ago. Today, she is crying right now in the room, talking to me about it. The patient was on Dilantin for her seizure disorder. However, several years ago, she stopped her Dilantin because she was told to stop it by her neurologist in [place]. When she arrived to the [facility], her glucose was noted to be 482. The patient states she has not been taking her metformin because she ran out of her medications. She was given several doses of insulin at [facility], [place]. The patient is not complaining of any problems with her urine. She is not complaining of any chest pain. She is only complaining of abdominal pain at this time. The patient states she has had the watery diarrhea. She states she has not had any blood in her stool. She did state she had vomited a few times at home this past week. She states that she had not have any blood when she vomited. The patient did state that she had several blackout spells these past few weeks. I asked her if she thought these might be seizures. The patient stated that she knew that they were not seizures. However, she has had seizures in the past few years, since she has been off her Dilantin but these were not seizures. PAST MEDICAL HISTORY: Diabetes type 2. Takes metformin at home. However, she has been off this metformin because she ran out of her medication. Seizure disorder, depression, anxiety. 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 They fixed this. Left shoulder repair, hysterectomy, tubal ligation, right hand repair, section. FAMILY HISTORY: Father . He from an [place]. Mother, who is still living, has diabetes and dementia. SOCIAL HISTORY: The patient lives with several family members in [place]. She smokes a pack a day of cigarettes. She denies any alcohol or illicit drug use. ALLERGIES: Penicillin. HOME MEDICATIONS: Metformin 1000 mg p.o. b.i.d., Dilantin 100 mg p.o. t.i.d. (however, she states she has not taken this medication in several years), Paxil 40 mg p.o. daily. LABORATORY DATA AND DIAGNOSTICS: White blood cell count 8.63, red blood cell count 5.05, hemoglobin 14.5, hematocrit 42.2, platelet count 199,000. PH 7.41, CO2 of 44, PO2 of 88, bicarb 26.8, base excess 2.7, oxyhemoglobin 88, carboxyhemoglobin 9.90, O2 saturation 99.1. This is on room air. Sodium 134, potassium 4.4, chloride 98, carbon dioxide 26, anion gap 10, BUN 19, creatinine 0.7, estimated GFR greater than 60, glucose 482, calcium 10.3. Total bilirubin 0.4, AST 6, ALT 6, alkaline phosphatase 95. Creatine kinase 26, troponin less than 0.01. ProBNP is 25. Lipase 25. Lactate 1. Acetone negative. EKG shows normal sinus rhythm with a rate of 78, with a right bundle branch block. CT of the abdomen and pelvis shows infectious or inflammatory enterocolitis, diffuse mesenteric stranding which may represent changes from mesenteritis, sepsis. There is also diffuse third-spacing edema, moderate pericardial effusion. REVIEW OF SYSTEMS: A 12 point review of systems has been obtained. All are negative except what is stated above in the HPI. PHYSICAL EXAMINATION: VITAL SIGNS: Temperature 98 degrees, pulse rate 75, respiratory rate 18, blood pressure 127/77, O2 saturation 100% on room air. Weight 108 pounds, height 5 feet. GENERAL: This is a 48-year-old, female. She is lying in the hospital bed. She is very thin and somewhat malnourished. She has lots of excess skin hanging from her body. HEENT: Atraumatic, normocephalic. Pupils are equal, round, reactive to light. Extraocular movements are intact. Sclerae are icteric. Mucous membranes are dry. NECK: Supple. No lymphadenopathy. Trachea is midline. No JVD. No thyromegaly. No bruits. CARDIOVASCULAR: Regular rate and rhythm. No murmurs, gallops, or rubs appreciated. RESPIRATORY: Lung sounds are clear with equal chest excursion. Respirations are nonlabored. No accessory muscle usage. GI: Abdomen is very flat. It is tender to the touch. It is nondistended. Bowel sounds are present x4. NEUROLOGIC: Cranial nerves 2-12 are intact. Patient is awake, alert, oriented, and able to follow all commands appropriately. MUSCULOSKELETAL: Full distal strength noted. No abnormalities. No deformities. EXTREMITIES: No clubbing, no cyanosis, no edema. DP and PT pulses are present and palpable. SKIN: Warm, dry, and intact. There are no rashes. No bruises. The patient has very poor turgor. There is no diaphoresis. ASSESSMENT AND PLAN: 1. Enterocolitis. We have admitted this patient to the PVC unit where we have started her on intravenous fluid hydration of normal saline at 100 mL an hour. She was given a bolus over at [facility], [place]. We have started her on antibiotics of Levaquin and Flagyl. We have given her Zofran for her nausea. She also has morphine for pain. She can have a diabetic diet as tolerated. 2. Pericardial effusion. We are going to consult cardiology to see this patient. We will get an echocardiogram on this patient. 3. Diabetes mellitus. I placed this patient on a diabetic diet. I placed her on sliding scale insulin. I placed her on fingersticks before meals and at bedtime. I am going to give her Lantus daily. 4. Depression, anxiety. The patient is on Paxil at home. I have restarted her home dose Paxil. 5. Tobacco dependency. I have started her on a nicotine patch daily. 6. History of seizure disorder. The patient states that she has not been taking her Dilantin. She was taken off this medication by her neurologist in [place] several years ago. However, she has had a few seizures at home. The patient states she has had blackout spells at home over the past week. She states these are not seizures. We will monitor the patient. We will not start Dilantin at this time because she has been off this medication for several years. We will just monitor this. 7. Gastrointestinal prophylaxis. I have ordered her to have Prilosec daily. 8. Deep venous thrombosis prophylaxis. I have ordered her sequential compression devices. The plan is that we have admitted this patient to the PVC unit. We placed her on residential nurse. We have started her on intravenous fluid hydration. She can have morphine for pain and Zofran for her nausea. We are going to start her on a diabetic diet. I have consulted the dietitian as this patient has had some weight loss over the past year. We are going to check her blood sugars before meals and at bedtime. We are going to start her on some Lantus and sliding scale insulin. We have consulted cardiology. We are going to consult a gastroenterology doctor. We are going to get an echocardiogram. She is going to get Levaquin and Flagyl. I am going to check some labs in the morning. All other further recommendations pending hospital course and laboratory data. Dictated by REMY Lopez for Chapis Valencia MD cc: Chapis Valencia MD
--- NOTE | 2019-05-25 07:25 | Diag Imaging Result Doc PS360 ---
EXAM: CT ABD/PELVIS W/IV CONT ONLY 05/24/2019 HISTORY: severe abdominal pain TECHNIQUE: This exam was performed using automated exposure control, adjustment of mA or kV according to patient size, and/or use of iterative reconstruction technique. COMMENT: There are platelike opacities present in the right middle lobe which were also present on 05/07/2019 presumably due to fibrosis. There is a pericardial effusion which was also present previously and is apparently slightly smaller. There is mild generalized edema in the subcutaneous and mesenteric fat similar in appearance to previous examinations. There are multiple granulomata in the spleen. There is some hypodensity in the liver adjacent to the falciform ligament which is probably due to focal fatty infiltration. This was less evident on the previous study which was performed without contrast. It was evident on the previous study of 11/11/2016. The pericardial effusion was also present at that time. There is some stool in the colon. The small bowel is not distended. The aorta is not distended. The kidneys are without evidence of hydronephrosis or mass. The adrenal glands are not enlarged and the pancreas is unremarkable in appearance. Pelvis: There is a phlebolith in the right gonadal vein. The appendix is not terribly well seen but there does appear to be some gas in the appendix and there is no evidence of dilatation or inflammation. There has been hysterectomy. There is no free fluid. This was not the case on the previous study of 11/11/2016. The urinary bladder is not distended. There are additional phleboliths in the lower pelvis. The regional skeleton appears to be intact. IMPRESSION: 1. Constipation. 2. Stable pericardial effusion and minimal anasarca. Other nonacute findings as described above. Electronically signed by Héctor Hopkins 05/25/2019 7:22 AM
[2019-05-25] MEDS: PAXIL PO SCH (09:27)
[2019-05-25] MEDS: NICODERM PATCH TD SCH (09:27)
--- NOTE | 2019-05-25 09:30 | EKG Report ---
Test Performed on : 05/25/2019 09:13:21 AM Test Reason : chest pain Blood Pressure : / mmHG Vent. Rate : 072 BPM Atrial Rate : 072 BPM P-R Int : 118 ms QRS Dur : 134 ms QT Int : 426 ms P-R-T Axes : 068 076 046 degrees QTc Int : 466 ms Normal sinus rhythm. Right bundle branch block Abnormal ECG When compared with ECG of 25-MAY-2019 02:03, (Unconfirmed) No significant change was found Confirmed by Joelle MCMULLEN, Carmelo Garrett ([id number]) on 05/26/2019 7:15:50 AM
[2019-05-25] MEDS: LANTUS INSULIN SUBQ SCH (09:44)
[2019-05-25 10:38] LABS: FREE T4 1.56 ng/dL (0.93-1.70); TSH 2.59 uIUmL (0.27-4.20)
[2019-05-25] MEDS ORDERED: MAGNESIUM SULFATE 4 GM/S.W.I. 4 GM/100 ML IVPB IV ONE (10:38)
[2019-05-25] MEDS: FLAGYL 500 MG/NS 500 MG/100 ML IVPB IV SCH ×3 (11:30→23:55)
[2019-05-25] MEDS: NS 1,000 ML IV SCH (11:30)
--- NOTE | 2019-05-25 11:55 | CARDIOLOGY CONSULTATION ---
DATE: 05/25/2019 REQUESTING PHYSICIAN: Hospitalist Service. REASON FOR CONSULTATION: A 48-year-old female with finding of pericardial effusion on a CT scan of the chest. HISTORY: Mrs. Huitron presented to this hospital last night at about 9:27 p.m., complaining of midabdominal pain that radiated to the left flank, left back, with dizziness and nausea. This has been going on for a while. The patient says that every time she eats, she develops discomfort in the abdomen with sweating. Naturally, they did a CT scan of the abdomen, and they found incidentally a pericardial effusion without tamponade. That immediately prompted this request of cardiac evaluation. They have checked a proBNP level, which is normal, a troponin level, which is negative. The 12- lead EKG that they did in the ER shows sinus rhythm with a right bundle branch block pattern. The CT scan of the abdomen included a portion of the heart, which reveals no evidence of significant coronary atherosclerosis. They have done a 2D echocardiogram this morning that shows a small-sized pericardial effusion without indication of tamponade. There is no evidence of any significant valvular abnormality. The patient has no prior history of heart disease. The patient says that she has been losing weight for the past 6 years or so gradually. PAST MEDICAL HISTORY: Positive for diabetes mellitus type 2. She has been diagnosed with depression and anxiety. She has been diagnosed with a seizure disorder. PAST SURGICAL HISTORY: She has had a left shoulder surgery, hysterectomy, tubal ligation, right hand repair, section. Apparently, she had clubbed feet at , requiring surgery. SOCIAL HISTORY: She is . Lives with her mother and her brother. She has 3 grownup children. She has been a tobacco user of 1 pack a day for the past 30 years. Not a drinker. FAMILY HISTORY: Father had myocardial infarction, open-heart surgery. Mother has dementia, hypertension. ALLERGIES: Penicillin. HOME MEDICATIONS: At the time of this admission, included metformin 1000 twice a day, paroxetine 40 mg daily, phenytoin 100 mg 3 times a day. REVIEW OF SYSTEMS: Basically revolves around the gastrointestinal system. She has no prior issue with cardiac symptoms in the past, although she lately admits to having some exertional dyspnea and some issues with her balance. Of note, when she first came into the ER, her glucose level was 482 mg%. Magnesium was 1.4. I believe this has been already addressed by the primary service. PHYSICAL EXAMINATION: Vital Signs: Today, blood pressure 102/59, temperature 97.8 degrees, pulse 73, respirations 14. General: She is awake, alert, oriented. No distress. Appears to be somewhat chronically ill. HEENT: Unremarkable. Chest: Symmetrical breath sounds. No rales. Heart: Heart sounds are regular and rhythmic. I do not hear a gallop or murmur. Abdomen: Soft, nontender. No hepatomegaly. No masses. Extremities: Decreased pulses. She has a very little amount of muscle mass. Neurologic: Cranial nerves are normal. Mentation is normal. Alert and oriented x3. Moves all 4 extremities. Follows commands. LABORATORY DATA: Blood work on admission also included a hemoglobin of 14.5, MCV 83.6, RDW 12.4. Blood gases on admission: Oxyhemoglobin 88%, carboxyhemoglobin 9.9%, that was in room air, CO2 is 44, PO2 is 88. IMPRESSION: 1. Patient presenting basically with a number of gastrointestinal complaints, feeling unwell, suggestion of gastroenteritis, chronic. 2. Diabetes mellitus type 2, probably poorly controlled. 3. Incidental finding of a [id number] sized pericardial effusion by CT criteria. By echocardiographic criteria, probably more on the small size with no hemodynamic suspicion of tamponade. 4. Abnormal electrocardiogram with a right bundle branch block. 5. Tobacco user. 6. Family history of premature heart disease. RECOMMENDATION: At this time, from the cardiac viewpoint, I doubt that we need to do anything specific. She needs to have a followup echo probably in the next 2 months or so to make sure that the effusion has not changed. I will check a TSH level because of the likelihood of having hypothyroidism as the best explanation for her effusion. I would recommend that the keel press operator get involved in the case. I would strongly pursue upper endoscopy to make sure that she does not have any serious gastrointestinal pathology. Please call me if you have any further questions or concerns. cc: MD Chapis Jiang MD
--- NOTE | 2019-05-25 13:18 | ECHO REPORT ---
ORDER DATE: 05/25/2019 INDICATION: Colitis, possible pericardial effusion. FINDINGS: 1. Right atrium appears normal in size at 3.4 cm. 2. Mild tricuspid regurgitation. RV systolic pressure 27. 3. Normal RV size and systolic function. 4. Trace pulmonic insufficiency. 5. Mild left atrial enlargement with a volume index of 29. 6. No mitral valve prolapse. Mild mitral regurgitation. No mitral stenosis. 7. Normal LV size, end-diastolic dimension of 4.3. Normal wall thicknesses with a posterior and interventricular septal wall thickness of 0.9 cm each. Normal LV systolic function. Estimated EF is 60% with normal wall motion. 8. Aortic valve opens well. It is trileaflet. No evidence of stenosis or insufficiency. 9. Aorta appears normal on visualized segments. 10. There is an extremely small circumferential pericardial effusion that is predominantly anterior. There is no evidence of tamponade physiology. cc: MD Chapis Aj MD
[2019-05-25] MEDS: BENADRYL PO PRN (15:46)
[2019-05-26] MEDS: ZOFRAN IV PRN ×5 (00:09→23:42)
[2019-05-26] MEDS: MORPHINE IV PRN ×4 (03:37→23:42)
[2019-05-26] MEDS: FLAGYL 500 MG/NS 500 MG/100 ML IVPB IV SCH ×4 (04:08→23:42)
[2019-05-26] MEDS: LEVAQUIN 750 MG in NS 150 ML IV SCH (05:13)
[2019-05-26 05:47] LABS: BASO# 0.04 X1000 (0.0-0.2); BASO% 0.5 % (0.0-0.8); EOS# 0.13 X1000 (0.0-0.7); EOS% 1.7 % (0.0-10.0); HEMOGLOBIN 12.3 g/dL (12.0-16.0); LYMPH# 2.61 X1000 (1.2-3.4); MCH 28.5 PG (27-31); MCHC 33.2 g/dL (33-37); MCV 85.8 FL (81-99); MONO# 0.39 X1000 (0.11-0.59); MONO% 5.2 % (1.7-9.3); MPV 11.8 FL (7.4-10.4); NEUT# 4.29 X1000 (1.4-6.5); NEUT% 57.6 % (42.2-75.2); PLT 173 X1000 (130-400); RBC 4.31 XMIL (4.2-5.4); RDW 12.3 % (11.5-14.5); WBC 7.46 X1000 (4.8-10.8)
[2019-05-26 05:55] LABS: HEMOGLOBIN A1C 10.9 % (4.8-6.0)
[2019-05-26 06:01] LABS: AGAP 9; BUN 13 mg/dL (8-22); CALCIUM 8.7 mg/dL (8.8-10.2); CHLORIDE 103 mmol/L (98-107); COSMO 279; CREATININE 0.7 mg/dL (0.5-0.9); ESTIMATED GFR > 60; GLUCOSE 184 mg/dL (70-104); POTASSIUM 4.2 mmol/L (3.5-5.1); SODIUM 137 mmol/L (136-145); TCO2 25 mmol/L (25-35)
[2019-05-26] MEDS: PRILOSEC PO SCH (06:32)
[2019-05-26] MEDS: NS 1,000 ML IV SCH ×2 (06:33→23:44)
[2019-05-26] MEDS: HUMALOG SUBQ SCH ×4 (06:49→20:43)
[2019-05-26] MEDS: NICODERM PATCH TD SCH (09:49)
[2019-05-26] MEDS: PAXIL PO SCH (09:49)
[2019-05-26] MEDS: LANTUS INSULIN SUBQ SCH (09:49)
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
[2019-05-26] MEDS: MIRALAX PO SCH (16:43)
[2019-05-26] MEDS: MILK OF MAGNESIA PO PRN (17:01)
--- NOTE | 2019-05-26 17:10 | PROGRESS NOTE ---
DATE: 05/26/2019 SUBJECTIVE: This is a patient of REMY Bhatti. This is a 48-year-old who came in with abdominal pain. She had been having periods of nausea for the past week and some periods of vomiting. Has been having some severe abdominal pain, coughing, chills, fever, dizziness, weakness, watery stools, several periods of blackout spells. She went to the [facility] the evening of admission, on 05/25/2019. CT done at [place]. CT of the abdomen pelvis did show infectious or inflammatory enterocolitis, diffuse mesenteric stranding which may represent mesenteritis. There was also diffuse third-spacing edema. Had moderate pericardial effusion. So admission for enterocolitis, mild pericardial effusion, diabetes mellitus. She reports that she feels about the same today. OBJECTIVE: Vital signs: She remains afebrile. Temperature 98.1 degrees, pulse 77, respirations 15, blood pressure 129/71. HEENT: Pupils are equal and round. Lungs: Clear in all lung gil. Cardiovascular: Regular rhythm and rate without murmur or S3. Abdomen: Soft. Skin: Warm and dry. ASSESSMENT AND PLAN: 1. Basically presented with a number of gastrointestinal complaints suggestive of gastroenteritis, which could be chronic. 2. Diabetes mellitus type 2. We are following pattern sugars and I suspect it has been poorly controlled. 3. Incidental finding of small to medium-sized pericardial effusion on CT. By echocardiographic criteria, probably more in the small size with no hemodynamic suspicion of tamponade. 4. Tobacco user. 5. Abnormal electrocardiogram with right bundle branch block. 6. Neurology was asked to see. She has longstanding history of intermittent spells of uncertain etiology. She said she was told she had pseudoseizures and that she has had these spells off and on. She describes tingling in both of her hands. Describes tingly sometimes in her feet and around her mouth with these spells. I do not want to initiate typical antiepileptic medication at this time. We will check an EEG. I am not sure about the syncopal episodes. They may be related to the nausea and vasovagal in nature. Plan to check T4 and TSH. REVIEW OF ORDERS: She is getting normal saline at 75 mL an hour. She is getting metronidazole at 500 mg IV q.6 hours. She is getting insulin glargine 20 units daily. She is getting Levaquin at 750 mg IV q.24 hours. Getting nicotine patch 21 mg daily, Prilosec 20 mg a day, Paxil 40 mg a day. cc: Collin Rodriguez MD
[2019-05-26] MEDS: BENADRYL PO PRN (20:17)
[2019-05-27] MEDS: BENADRYL PO PRN (01:25)
[2019-05-27] MEDS: FLAGYL 500 MG/NS 500 MG/100 ML IVPB IV SCH ×4 (04:32→22:42)
[2019-05-27] MEDS: ZOFRAN IV PRN ×5 (04:32→23:05)
[2019-05-27] MEDS: LEVAQUIN 750 MG in NS 150 ML IV SCH (06:18)
[2019-05-27] MEDS: MORPHINE IV PRN (06:35)
[2019-05-27] MEDS: HUMALOG SUBQ SCH ×4 (06:42→20:14)
[2019-05-27] MEDS: PRILOSEC PO SCH (07:13)
[2019-05-27] MEDS: PAXIL PO SCH (08:53)
[2019-05-27] MEDS: MIRALAX PO SCH ×2 (08:53→20:18)
[2019-05-27] MEDS: NICODERM PATCH TD SCH (08:53)
[2019-05-27] MEDS: LANTUS INSULIN SUBQ SCH (08:53)
[2019-05-27] MEDS ORDERED: DULCOLAX PR PRN (10:30)
[2019-05-27] MEDS: LACTULOSE PO SCH ×2 (10:45→20:18)
[2019-05-27] MEDS: ULTRAM PO PRN ×2 (10:45→18:07)
[2019-05-27] MEDS: NS 1,000 ML IV SCH (11:54)
[2019-05-27] MEDS: MILK OF MAGNESIA PO PRN (14:44)
--- NOTE | 2019-05-27 16:34 | EEG REPORT ---
DATE: 05/26/2019 REFERRING PHYSICIAN: Sharyn Chadwick MD [employer]NA[employer]: Kaela Myles. BACKGROUND INFORMATION/TECHNIQUE: This is a digitally recorded routine EEG with video. HISTORY: A 48-year-old female patient with question of seizure versus NAVID. EEG is ordered to detect evidence of seizures. MEDICATIONS: Include p.r.n. morphine, Paxil. EEG FINDINGS: A well-formed 10 to 11 hertz posterior dominant alpha rhythm is seen symmetrically in the occipital regions and attenuates with eye opening. The anterior background consists of mixed alpha and beta range frequencies. No definite persistent focal slowing. No epileptiform discharges. No seizures. Hyperventilation induces mild diffuse physiologic slowing. Photic stimulation does not alter the record. No definite drowsiness patterns. Stage II sleep is not seen. EKG demonstrates regular RR intervals. IMPRESSION AND CLINICAL CORRELATION: Normal routine EEG in the awake state. Of note, a normal EEG does not rule out epilepsy. Clinical correlation is recommended. cc: Sharyn Chadwick MD
--- NOTE | 2019-05-27 17:51 | PROGRESS NOTE ---
DATE: 05/27/2019 SUBJECTIVE: Ms. Huitrno states she is feeling a little bit better. OBJECTIVE: She remains afebrile. Temperature 98.5 degrees, pulse 82, respirations 20, and blood pressure 138/82. Pupils are equal and round. Lungs are clear in all lung gil. Cardiovascular regular rate without murmur or S3. Abdomen is soft. Skin is warm and dry. ASSESSMENT AND PLAN: 1. Basically, she presented with a number of gastrointestinal complaints suggestive of gastroenteritis, which could be chronic. She seems to be doing better from that standpoint. 2. Diabetes mellitus type 2. Sugars under good control. 3. Incidental finding of small and medium sized pericardial effusion. CT scan by echocardiographic criteria probably more small size, and no hemodynamic suspicion of tamponade. 4. Tobacco use. 5. Abdominal EKG with right bundle branch block. 6. Neurology is asked to see. She reported that she has had episodes of what they labeled as pseudoseizures, and not had any spells while she is here. I think an EEG is pending. Electrolytes and CBC unremarkable. Blood sugars have been 184, 211 and 0.41 so looking over the orders, I do not see any change. Normal saline at 75 mL an hour. Levaquin 750 mg IV q.24 hours. Nicotine patch 21 mg daily Flagyl 500 mg IV q.6 hours, and Lantus insulin [address] Chadwick has evaluated the most recent syncopal episode in the context of and GI illness. She has intermittent spells of uncertain etiology. We will see what the EEG shows. cc: Collin Rodriguez MD
[2019-05-27] MEDS: VANCOCIN PO SCH (22:42)
[2019-05-28] MEDS: NS 1,000 ML IV SCH ×2 (00:46→06:08)
[2019-05-28] MEDS: FLAGYL 500 MG/NS 500 MG/100 ML IVPB IV SCH (04:59)
[2019-05-28] MEDS: VANCOCIN PO SCH (05:00)
[2019-05-28] MEDS: LEVAQUIN 750 MG in NS 150 ML IV SCH (06:08)
[2019-05-28] MEDS: PRILOSEC PO SCH (06:08)
[2019-05-28] MEDS: HUMALOG SUBQ SCH (06:37)
[2019-05-28] MEDS: PAXIL PO SCH (08:27)
[2019-05-28] MEDS: MIRALAX PO SCH (08:27)
[2019-05-28] MEDS: LANTUS INSULIN SUBQ SCH (08:28)
[2019-05-28] MEDS: LACTULOSE PO SCH (08:30)
[2019-05-28] MEDS: NICODERM PATCH TD SCH (08:30)
[2019-05-28 09:11] VITALS: BP 138/68
--- NOTE | 2019-05-28 09:41 | DISCHARGE SUMMARY ---
ADMISSION DATE: 05/25/2019 DISCHARGE DATE: 05/28/2019 HISTORY: Ms. Huitron is 48 years old, was admitted on 05/25/2019 and discharge on 05/28/2019. She presented with abdominal pain. She sees REMY Bhatti. The 48-year-old states that she has been having periods of nausea for the last week before admission, actually had periods of vomiting a few times. She had been having some abdominal pain coughing, chills, fever, dizziness and weakness, having watery stools and had several periods of blackout spells. Went to [facility] and had a CT scan done at [place]. CT of the abdomen and pelvis did show inflammation, possible enterocolitis, diffuse mesenteric stranding which may represent some mesenteritis. There is also diffuse third-spacing edema. She had moderate pericardial effusion. 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 The patient states that she has had weight loss over the past few years. Weight loss has been up and down. She used to be greater than 200 pounds. She is currently 108 pounds. The patient is still currently having a lot of problems with depression and anxiety. She has Paxil at home that she takes every day. Periods of depression where she has a lot of crying after the of her father 5 years ago and she was crying while they were admitting her. The patient was on Dilantin for her seizure disorder although they said they took her off because they thought it was pseudoseizures. Several years ago stopped the Dilantin by a neurologist in [place]. She arrived to the [facility] and her glucose was 482. States she has not been taking her metformin because she ran out of medications. She had several doses of insulin at [facility]. The patient was not complaining of any problems in her urine. She is not complaining of any chest pain. Not complaining of any abdominal pain at that time. She did state she had some watery diarrhea. States she has not had any blood in her stool. She did state that she has had several episodes of vomiting in the past week, not had any blood when she vomited. She has had several blackout spells in the last few weeks and when asked if she thought these were seizures, patient stated that she knew they were not seizures. She has not had any seizures in the past few years. PAST MEDICAL HISTORY: Diabetes mellitus type 2 for which she takes metformin. She has been off the metformin because she ran out of her medication. 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 Left shoulder repair, hysterectomy, tubal ligation, right hand repair, section. HOSPITAL COURSE: Admission diagnosis was enterocolitis. She was put in the PVC unit, given some fluids and started on Levaquin and Flagyl. She had not had any bowel movements and appeared to have actually some constipation and was given a bowel regimen. She had a bowel movement. Note that her stools were sent for Clostridium difficile toxin and it was positive but there were no white blood cells in the stool and like I said when she was in the hospital she was having constipation. Neurology evaluated her as well as Cardiology. She had an echocardiogram on 05/25/2019 with normal left ventricular dimension. Ejection fraction 60%. No significant valvular dysfunction. EEG was done and normal routine EEG in the awake state. Normal EEG with no sign of epileptiform activity. The patient felt better and wanted to go home. I will let her go home. We will give her a prescription for her Paxil. She got her metformin 1000 mg twice a day, Paxil 40 mg a day, Dilantin she takes 100 mg t.i.d., but I think she has been told to stop that, so I do not believe she has getting the Dilantin. I will give her a prescription for Paxil 40 mg, a month supply and 5 refills. I will let her have the MiraLAX 17 g p.o. once a day and I think I will give her 7 days of Flagyl 500 mg twice a day because of the positive Clostridium difficile toxin and let her go home. She will follow up with her primary care, Nimo Maguire. cc: MD Nimo Larios CRNP
== END 2019-05-28 10:28 | disposition home or self-care (01) | DRG 392 ==
LOC: P.ED 19:49 → 2N 05-25 04:14 → SUATTDRO 05-25 04:14
PROVIDERS: ATTEND Emergency Medicine

== ENCOUNTER 2019-10-15 19:00 | Inpatient (IN) ==
[2019-10-15] MEDS ORDERED: SOLU-MEDROL IV ONE (20:00)
[2019-10-15] MEDS ORDERED: NS 1,000 ML IV ONE ×2 (20:00→21:42)
[2019-10-15 20:22] LABS: BASO# 0.04 X1000 (0.0-0.2); BASO% 0.5 % (0.0-0.8); EOS# 0.12 X1000 (0.0-0.7); EOS% 1.6 % (0.0-10.0); HEMATOCRIT 38.5 % (37.0-47.0); HEMOGLOBIN 13.1 g/dL (12.0-16.0); IMM GRAN# 0.05 X1000 (0.0-0.04); IMM GRAN% 0.7 % (0.0-0.5); LYMPH# 3.25 X1000 (1.2-3.4); LYMPH% 43.4 % (20.5-51.1); MCH 28.1 PG (27-31); MCV 82.4 FL (81-99); MONO# 0.43 X1000 (0.11-0.59); MONO% 5.7 % (1.7-9.3); MPV 12.4 FL (7.4-10.4); NEUT# 3.59 X1000 (1.4-6.5); NEUT% 48.1 % (42.2-75.2); PLT 198 X1000 (130-400); RBC 4.67 XMIL (4.2-5.4); RDW 12.4 % (11.5-14.5); WBC 7.48 X1000 (4.8-10.8)
--- NOTE | 2019-10-15 20:24 | Diag Imaging Result Doc PS360 ---
CHEST-2 VIEWS - 10/15/2019 INDICATION: cough COMPARISON: 09/12/2019 FINDINGS: The lungs are normally expanded and clear. Heart size and mediastinal contours are normal. No pneumothorax or pleural effusion. IMPRESSION: Negative exam. Electronically signed by Juan Sheriff 10/15/2019 8:22 PM
[2019-10-15 20:40] LABS: URINE SOURCE CLEAN CATCH
[2019-10-15 20:45] LABS: BILIRUBIN URINE NEGATIVE (NEGATIVE); BLOOD URINE NEGATIVE (NEGATIVE); COLOR YELLOW; GLUCOSE URINE >1000 mg/dL (NEGATIVE); KETONE URINE NEGATIVE (NEGATIVE); LEUKOCYTES URINE NEGATIVE (NEGATIVE); NITRITE URINE NEGATIVE (NEGATIVE); PROTEIN URINE NEGATIVE (NEGATIVE); SP GRAVITY URINE 1.034; TURBIDITY URINE CLEAR (CLEAR); UR EPITHELIAL CELLS <10 /HPF (<10); URINE BACTERIA NEGATIVE /HPF; URINE RBC <10 /HPF (<10); URINE WBC <10 /HPF (<10); UROBILINOGEN URINE NORMAL (NORMAL)
[2019-10-15 20:46] LABS: AGAP 11; ALB/GLOB RATIO 1.2; ALBUMIN 3.8 g/dL (3.5-5.0); ALKALINE PHOSPHATASE 99 U/L (32-104); BUN 15 mg/dL (8-22); CALCIUM 9.4 mg/dL (8.8-10.2); CHLORIDE 91 mmol/L (98-107); COSMO 280; CREATININE 0.7 mg/dL (0.5-0.9); ESTIMATED GFR > 60; GLUCOSE 501 mg/dL (70-104); GOT 13 U/L (10-30); GPT 15 U/L (10-36); POTASSIUM 4.2 mmol/L (3.5-5.1); SODIUM 128 mmol/L (136-145); TCO2 26 mmol/L (25-35); TOTAL BILIRUBIN 0.22 mg/dL (0.20-1.00)
[2019-10-15] MEDS ORDERED: HUMULIN R IV ONE (20:46)
--- NOTE | 2019-10-15 21:19 | PROVIDER DOCUMENTATION ---
This chart was entered by Tonja Oakes Scribe, acting as scribe for Doroteo Patino MD. HPI-General Adult - General Chief Complaint: Abdominal Pain Stated Complaint: STOMACH PAIN (ULCER), NAUSEA Time Seen by Provider: 10/15/19 19:22 Source: patient Allergies/Adverse Reactions: Patient Allergies Allergy/AdvReac Type Severity Reaction Status Date / Time Penicillins Allergy Intermediate HIVES Verified 09/12/19 20:58 Home Medications: Home Medication List Medication Instructions Recorded Confirmed Last Taken Type Metformin [Glucophage] 1,000 mg PO BID #120 tab 05/07/19 10/15/19 07/16/19 Rx Paroxetine HCl [Paxil] 40 mg PO DAILY #14 tab 07/16/19 10/15/19 Unknown Rx Pregabalin [Lyrica] 75 mg PO TID 09/12/19 10/15/19 Unknown History Acetaminophen/Diphenhydramine 1 ea PO HS 10/15/19 10/15/19 Unknown History [Tylenol Pm] Omeprazole [Prilosec] 20 mg PO DAILY 10/15/19 10/15/19 Unknown History - History of Present Illness -Gen Adult Nature of Presenting Problems: pt is a 49 yr old female presenting with 3 week hx of productive cough with thick, green sputum, pt reports also having sinus drainage of same. pt reports today she was coughing so hard it caused her to vomiting. pt admits hx of pneumonia. pt denies any fever/chills. pt does also reports epigastric pain(recent dx with ulcer) and watery diarrhea Location of Pain/Injury: reports: abdomen (epigastric) Pain Radiation: reports: no radiation Quality of Pain: reports: aching, sharp Severity: reports: moderate Onset/Duration: reports: gradual Timing: reports: still present Context/Activities at Onset: reports: light activity Modifying Factors: improves with: coughing (induces vomiting) Associated Symptoms: reports: cough, diarrhea, sinus congestion/drainage, nausea , vomiting. denies: back/neck pain, chest pain, EENT symptoms, fever/chills, genitourinary problems, shortness of breath Similar Symptoms Previously?: No Recently seen or treated by another doctor?: No Review of Systems - Adult - REVIEW OF SYSTEMS - ADULT Constitutional: denies: chills, fever Eyes: reports: no symptoms reported Ears, Nose, Mouth & Throat: reports: sinus problem. denies: throat pain Cardiovascular: denies: chest pain, palpitations, syncope Respiratory: reports: cough. denies: shortness of breath, wheezing Gastrointestinal: reports: abdominal pain, diarrhea, nausea, vomiting Genitourinary: reports: no symptoms reported Musculoskeletal: reports: no symptoms reported Integumentary: reports: no symptoms reported Neurological: denies: dizziness/vertigo, headache/migraines Psychiatric: reports: no symptoms reported Endocrine: reports: no symptoms reported Hematologic/Lymphatic: reports: no symptoms reported Allergic/Immunologic: reports: no symptoms reported All Other Systems: Reviewed and Negative Past History - Adult - PAST MEDICAL HISTORY-ADULT Review of Records: reports: Old Records Reviewed, Nursing Assessment Review, Medications Reviewed, Social history reviewed & non-contributory. Major Childhood Illnesses: reports: denies history Cardiovascular: reports: denies history Respiratory: reports: pneumonia Gastrointestinal: reports: denies history Obstetrical/Gynecological: reports: denies history Genitourinary: reports: denies history Musculoskeletal: reports: denies history Neurological: reports: Seizures/Epilepsy Psychiatric: reports: anxiety, depression Endocrine/Immune: reports: Diabetes Other Conditions: reports: denies history - PRIOR SURGERIES/PROCEDURES Surgical/Procedure History: reports: hysterectomy, , orthopedic (extremity), other - PRIOR HOSPITALIZATIONS Prior Hospitalizations: reports: none - IMMUNIZATION STATUS Childhood Immunizations: UTD, See Nurse Assessment Flu Vaccine: See Nurse Assessment - FAMILY HISTORY Family History: reviewed, not pertinent - SOCIAL HISTORY Smoking: cigarettes Substance Use: denies Living Situation: family Physical Exam-General - PHYSICAL EXAM-ADULT Initial Vital Signs Reviewed: Yes - CONSTITUTIONAL General Appearance: alert, no apparent distress, anxious - EYES Eyes: PERRL/EOMI - HEAD, EARS, NOSE, MOUTH & THROAT HENMT: normocephalic/atraumatic, moist mucous membranes, other (sinus drainage) - NECK Neck: non-tender, full range of motion, supple, normal inspection - RESPIRATORY Respiratory: chest non-tender, lungs clear, normal breath sounds, no respiratory distress, no accessory muscle use - CARDIOVASCULAR Cardiovascular: normal peripheral pulses, regular rate, rhythm - GASTROINTESTINAL (ABDOMEN) Abdominal Exam: normal bowel sounds, soft, tenderness (epigastric tenderness) - LYMPHATIC Lymphatic: no adenopathy - MUSCULOSKELETAL Back Exam: normal inspection Extremity: normal range of motion, non-tender, normal gait, normal inspection - SKIN Integumentary: normal color, normal turgor, warm/dry - NEUROLOGIC Neurologic: grossly normal, no motor/sensory deficits - PSYCHIATRIC Psych/Mental Status: normal mood/affect Progress - PLAN OF CARE/RESULTS Progress/Plan/Lab Results: Vital Signs - 8 hr 10/15/19 19:07 Temperature 98.1 F Pulse Rate 84 Respiratory Rate 18 Blood Pressure 129/80 O2 Sat by Pulse Oximetry 100 Orders Category Date Time Status CHEST-2 VIEWS [RAD] Stat Exams 10/15/19 20:00 Ordered CBC WITH ELECTRONIC DIFF [HEME] Stat Lab 10/15/19 20:01 Ordered COMPREHENSIVE METABOLIC PANEL [CHEM] Stat Lab 10/15/19 20:01 Ordered URINALYSIS W/POSS RFLX CULT [URINALYSIS] Stat Lab 10/15/19 20:00 Uncollected 0.9% Sodium Chloride Inj [Ns] 1,000 ml Med 10/15/19 20:00 Active IV 999 mls/hr Methylprednisolone Sod Succ [Solu-Medrol] Med 10/15/19 20:00 Discontinued 125 mg IV NOW ONE Result Diagrams: 10/15/19 19:42 10/15/19 19:42 - XRAY 1 XRAY Study: Chest Impression: Normal (Signed CHEST-2 VIEWS - 10/15/2019 INDICATION: cough COMPARISON: 09/12/2019 FINDINGS: The lungs are normally expanded and clear. Heart size and mediastinal contours are normal. No pneumothorax or pleural effusion. IMPRESSION: Negative exam. Electronically signed by Juan Sheriff 10/15/2019 8:22 PM 10/15/192021 Interpreting Physician: Juan Sheriff MD Dictated Date/Time: 10/15/192021 cc: Doroteo Patino MD; None,PCP) - CONSULTS/PCP/HOSPITALIST Notification #1 *Consult/PCP/Hospitalist*: Dr Garcia Time Discussed: 21:16 Consult Disposition: Will see in ED, Admit Departure - Departure Date of Disposition Decision: 10/15/19 Time of Disposition Decision: 21:16 DIAGNOSIS: Uncontrolled type 2 diabetes mellitus with hyperglycemia, without long-term current use of insulin, Abdominal pain, Nausea and vomiting Disposition: AGAINST MEDICAL ADVICE 07 Certified Medical Emergency: Emergent Condition: Fair - Critical Care Note This patient required my direct & personal management of CC.: No Attestation - Physician/ GIA Attestation Patient care was provided by Advanced Practice Provider:: No The physician spent face to face time with patient:: Yes Advanced Practice Provider documentation review:: Supervising physician onsite and consulted in the evaluation and care of this patient. The physician did have a face to face encounter with the patient. This chart was documented by the indicated scribe, (Tonja Oakes Scribe) and accurately reflects the services I performed and decisions made by me, Doroteo Patino MD, as attested by the provider's signature.
[2019-10-15] MEDS ORDERED: TYLENOL PO ONE (21:42)
[2019-10-15] MEDS ORDERED: ZOFRAN IV ONE (21:42)
[2019-10-15 22:00] LABS: ALLEN TEST YES; BLOOD TYPE ARTERIAL; HCO3-(ACT) 24.8 mmoll (20.0-26.0); METHB 0.8 % (0.0-1.5); O2(CT) 16.8 mL/dL (15.0-23.0); O2HB 93.1 % (95.0-99.0); PCO2(98.6) 35 mmHg (35-45); PO2(98.6) 123 mmHg (60-100); SAMPLE BLOOD; SAO2 99.6 % (95.0-100.0); THB 12.7 g/dL (11.5-17.4); pH(98.6) 7.44 (7.35-7.45)
[2019-10-15 22:01] LABS: MODALITY ROOM AIR
--- NOTE | 2019-10-15 22:51 | HISTORY AND PHYSICAL ---
PRIMARY CARE PROVIDER: None. CHIEF COMPLAINT: Abdominal pain and cough for several days. HISTORY OF PRESENTING ILLNESS: A 49-year-old female with a history of diabetes mellitus type 2, seizure disorder, depression and anxiety, who had presented to the emergency department with complaint of cough and abdominal pain, and also nausea symptoms that have been going on for several days. She states that she was not feeling well. She presented to the emergency department. She was found to have markedly elevated blood glucose. She was given IV insulin, and we will place her in for observation for further evaluation and management. At the time of my examination, the patient denied any headache, fever, chills, chest pain, shortness of breath or weight changes, but complained of abdominal pain, nausea and not feeling well. PAST MEDICAL HISTORY: Includes diabetes mellitus type 2, seizure disorder, depression, anxiety. PAST SURGICAL HISTORY: Clubfoot surgery, left shoulder repair, hysterectomy, right hand surgery. ALLERGIES: Penicillin. MEDICATIONS: Current medications include metformin 1000 mg p.o. b.i.d., omeprazole 20 mg p.o. daily, Paxil 40 mg p.o. daily, Lyrica 75 mg p.o. t.i.d. SOCIAL HISTORY: A [id number]-year history of smoking. She denies any history of alcohol or illicit drug use. FAMILY HISTORY: Positive for coronary disease in father. REVIEW OF SYSTEMS: Fourteen-point review of system is as in HPI. Other systems negative. PHYSICAL EXAMINATION: GENERAL: Cooperative, friendly female. She is resting comfortably now. VITAL SIGNS: Temperature 98.1 degrees, pulse 84, respirations 18, blood pressure 129/80. She is saturating 100% on room air. HEENT: Atraumatic, normocephalic. Extraocular movements intact. PERRLA. NECK: No masses. CHEST: Clear to auscultation. CARDIOVASCULAR: Regular rate and rhythm. ABDOMEN: Soft. Positive bowel sounds. EXTREMITIES: No edema. NEUROLOGIC: She is awake, alert and oriented x3. GENITOURINARY: No bladder distention. SKIN: Warm. LABORATORY DATA: Sodium 128, potassium 4.2, chloride 91, CO2 is 26, BUN is 15, creatinine 0.7, glucose 501. WBC 7.48, hemoglobin 13.1, hematocrit 38.5, platelets 198,000. DIAGNOSTIC DATA: Chest x-ray is negative. ASSESSMENT: A 49-year-old female with a history of diabetes mellitus type 2, seizure disorder and depression, who had presented to the emergency department with several days history of having abdominal discomfort and nausea, along with cough symptoms. She was evaluated in the emergency department, and due to her presenting symptoms we will place her for observation for further evaluation and management. 1. Diabetes mellitus type 2 with hyperglycemia. 2. Abdominal pain and nausea, unclear etiology. 3. Acute bronchitis. 4. Seizure disorder. PLAN: 1. We will admit the patient to the medical floor with telemetry. 2. We will put patient on a medium sliding scale insulin regimen and continue with IV fluids. 3. Give patient appropriate antiemetics and do serial abdominal exams. 4. We will start the patient on DuoNeb and Tessalon Perles for her cough. 5. Put patient on seizure precautions. 6. Put patient on DVT prophylaxis with SCDs. 7. We will continue to follow and reassess, make further recommendation based on patient's clinical course. cc: Israel Garcia MD
[2019-10-15 23:06] VITALS: BP 132/85
== END 2019-10-16 00:54 | disposition left against medical advice (07) | DRG 203 ==
LOC: ED 19:00 → 3N 23:03
PROVIDERS: ATTEND Emergency Medicine